=== PATIENT | male | born 1985 | race Caucasian/White ===

== ENCOUNTER → 2016-11-24 | Outpatient (CLI) | payer MEDICARE, OTHER ==
--- NOTE | 2016-11-24 21:20 | CONS ---
DATE: 11/24/2016 CONSULTATION/NEW PATIENT EVALUATION HISTORY OF PRESENT ILLNESS/SLEEP-WAKE EVALUATION: A 31-year-old gentleman who has been evaluated in the sleep center for obstructive sleep apnea/hypopnea syndrome. Patient had been diagnosed with obstructive sleep apnea in a different institution in 2012, was started on treatment with CPAP and he continued to use his equipment every night for the whole night. He lost about 100 pounds for the last year and presently has some difficulties with the usage of his CPAP equipment. He wakes up tired, falling asleep during the day, has problems with memory, concentration. [place] Sleepiness Scale significantly increased to 10. SLEEP SCHEDULE: His sleep schedule is usually from midnight until around 9:00 a.m. FALLING ASLEEP: Sometimes he has problem with falling asleep, has TV set in bedroom. DURING SLEEP: Presently he usually sleeps through the night, but sometimes may wake up. No history of hypnagogic hallucinations, but according to patient, positive history of muscle weakness as a reaction to emotions. DURING THE DAY/WAKE STATE: He has been told about possibility of narcolepsy in the past, but after starting on treatment with CPAP, his alertness improved. PAST MEDICAL HISTORY: Positive for asthma, arthritis, diabetes mellitus, stroke in 2009 with the right side weakness and patient continued to have residual weakness on the right side; sinus problems, multiple sclerosis with brain and spine lesions, migraines, bipolar disorder and depression, vitamin D deficiency, history of restless legs in the past. PAST SURGICAL HISTORY: Pilonidal cyst removed in 2000. MEDICATIONS: Patient did not take list of his medications, does not remember all names, promised to bring the list. SOCIAL HISTORY: Positive for smoking for about 22 years 1/2 pack a day. Patient continues smoking. Alcohol consumption none. REVIEW OF SYSTEMS: Tiredness and sleepiness during the day, weakness in the body, especially on the right side. FAMILY HISTORY: Hypertension, angina, heart problems, hyperlipidemia, epilepsy, fibromyalgia, lung problems, pneumonia, headaches, cancer, insomnia, acid reflux, also with liver problems, anemia, mental illness. PHYSICAL EXAMINATION: GENERAL: A 31-year-old gentleman without distress. VITAL SIGNS: BP 120/74, HR 76, RR 16. Height 5 feet 4 inches, weight 338. BMI 58. Neck 22 inches in circumference. Temperature 97.4. Oxygen saturation at room air 97%. HEENT: MELANIE CRUZ. Evaluation of oropharynx showed tongue protrudes midline. Extremely low position of soft palate. Some restriction of nasal breathing. NECK: Supple. No JVD. Thyroid is not palpable. LUNGS: Clear to percussion and to auscultation. Good air exchange. No wheezing or rhonchi. HEART: S1, S2 regular. No murmurs, gallops or rubs. ABDOMEN: Soft and nontender. Bowel sounds are present. No organomegaly appreciated. EXTREMITIES: Dryness of the skin. Some weakness on the right side. Patient has difficulties to walk, walking with a cane. 1+ ankle edema. [employer]: Awake, alert, and oriented x3. Cranial nerves 2 to 7 intact. There is no fasciculation or atrophy noted. No focal deficits observed. IMPRESSION: 1. Obstructive sleep apnea/hypopnea syndrome diagnosed in a different institution. Patient continued to use continuous positive airway pressure equipment, lost about 100 pounds of weight, developed some difficulties with using continuous positive airway pressure equipment at the present time, but benefitting from treatment. 2. Obesity, body mass index of 58. 3. Asthma. 4. Arthritis. 5. Diabetes mellitus. 6. History of stroke in 2010 with right side weakness and some residual deficit. 7. Sinus problems. 8. History of multiple sclerosis with brain lesion and spine lesion. 9. Migraines. 10. 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 11. Bipolar. 12. Depression. 13. Status post pilonidal cyst removed in 2000. 14. Vitamin D deficiency. 15. Dry skin. PLAN: 1. Repeat CPAP titration for re-evaluation of effective pressure at the present time after patient lost 100 pounds of weight. 2. Sleep hygiene with regular time in bed for at least 8 hours. 3. No driving if feeling any sleepiness. 4. Continue losing weight. 5. Will get results and review results of previous sleep studies. Thank you very much for referring this patient for consultation. Sincerely, Paul Venegas MD, PhD, FAASM. Diplomat of [place] [employer], Sleep Medicine Board by [place] [employer] [place] [employer] [facility] [place]
== END | disposition home or self-care (01) ==
CPT/HCPCS: 99211

== ENCOUNTER 2018-09-19 03:04 | Observation (INO) | payer MEDICARE, OTHER ==
--- NOTE | 2018-09-19 03:24 | ED ---
Back Pain HPI - General Chief Complaint: Back Pain/Injury Stated Complaint: Back pain Time Seen by Provider: 09/19/18 03:22 Source: patient, RN notes reviewed, old records reviewed Limitations: physical limitation - History of Present Illness Initial Comments: This is a 33-year-old male the ER for evaluation patient resents today for evaluation regarding back pain severe, weakness severe. Patient is MS with severe symptoms, severe weakness severe pain. This is typical of patient's MS exacerbation otherwise denies fever or trauma MD Complaint: back pain -: days(s) Similar Symptoms Previously: Yes Place: home Radiation: abdomen Severity: moderate Severity scale (1-10): 4 Quality: aching Consistency: constant Improves With: none, medication Worsens With: movement Associated Symptoms: denies other symptoms - Related Data Home Medications Medication Instructions Recorded Confirmed Diazepam [Valium] 5 mg PO BID 12/24/14 09/19/18 Fenofibrate [Lofibra] 160 mg PO DAILY 12/24/14 09/19/18 Furosemide [Lasix] 20 mg PO DAILY 12/24/14 09/19/18 Ibuprofen [Motrin] 800 mg PO TID PRN 12/24/14 09/19/18 Meclizine [Antivert] 25 mg PO TID PRN 12/24/14 09/19/18 Montelukast [Singulair] 10 mg PO HS 12/24/14 09/19/18 Omeprazole [PriLOSEC] 20 mg PO AC-BID 12/24/14 09/19/18 Pregabalin [Lyrica] 300 mg PO BID 12/24/14 09/19/18 Simvastatin [Zocor] 20 mg PO HS 12/24/14 09/19/18 Travoprost [Travatan Z 0.004%] 1 drop BOTH EYES HS 12/24/14 09/19/18 tiZANidine [Zanaflex] 4 mg PO TID 12/24/14 09/19/18 traMADol HCl [Ultram] 50 mg PO QID PRN 12/24/14 09/19/18 Ampyra 10mg 10 mg PO Q12H 10/04/17 09/19/18 Cholecalciferol [Vitamin D3] 2,000 unit PO DAILY 10/04/17 09/19/18 Insulin Aspart [NovoLOG 30 - 50 unit SQ AC-TID 10/04/17 09/19/18 (formulary)] Insulin Detemir [Levemir] 35 unit SQ HS 10/04/17 09/19/18 Potassium Chloride [Klor-Con 20] 20 meq PO DAILY 10/04/17 09/19/18 Teriflunomide [Aubagio] 14 mg PO DAILY 10/04/17 09/19/18 metFORMIN HCL 1,000 mg PO BID 10/04/17 09/19/18 Butalb/Asprin/Caff 50-325-40Mg 1 cap PO Q8HR 09/19/18 09/19/18 [Fiorinal 50-325-40 MG] Insulin Detemir [Levemir] 30 units SQ DAILY 09/19/18 09/19/18 Teriflunomide [Aubagio] 14 mg PO DAILY 09/19/18 09/19/18 Allergies Allergy/AdvReac Type Severity Reaction Status Date / Time amphetamine [From Adderall] Allergy Unknown Verified 09/19/18 10:20 dextroamphetamine Allergy Unknown Verified 09/19/18 10:20 [From Adderall] peanut [Peanut Butter] Allergy Anaphylaxis Verified 09/19/18 10:20 codiene Allergy Nausea & Uncoded 09/19/18 03:15 Vomiting Review of Systems ROS Statement: Those systems with pertinent positive or pertinent negative responses have been documented in the HPI. ROS Other: All systems not noted in ROS Statement are negative. Past Medical History Past Medical History: CVA/TIA, Diabetes Mellitus, Eye Disorder, GERD/Reflux, Hypertension, Memory Impairment, Seizure Disorder, Sleep Apnea/CPAP/BIPAP Additional Past Medical History / Comment(s): 12/24/14 Pt states he was scheduled for an outpt lumbar puncture for further diagnosing of possible MS or Lupus. Pt started approximately 2 1/2 months ago with feeling like the entire R side of his body was on fire. This went away and then he started with headaches, nausea and disorientation. Pt states he went to [facility] ER and they worked him up and found a brain mass and brain lesions. He then saw neurologist and was worked up for MS . Other HX: Pt states he had CVA in June 2010 which left him with L sided weakness both arm and leg and sometimes drooling out L side of mouth but no difficulty swallowing. Bilateral lower leg and feet neuropathy, incontinent of urine and stools for the last month. Bilateral eyes glaucoma, respiratory failure from sleep apnea 2013. Sleep apnea with CPAP use. Pt had allergic reaction to adderil as a child and pt had some liver involvement at that time however pt states liver tests are normal now. Infections in groin-has never been told this was MRSA or VRE.seizure-last seizure year and half ago, migraines. OPTIC NEURITIS. History of Any Multi-Drug Resistant Organisms: None Reported Additional Past Surgical History / Comment(s): Pilonidial cyst removal, lumbar ouncature, colonoscopy. Past Anesthesia/Blood Transfusion Reactions: No Reported Reaction Additional Past Anesthesia/Blood Transfusion Reaction / Comment(s): Pt has never had a blood transfusion. Past Psychological History: Bipolar, Depression Smoking Status: Current every day smoker Past Alcohol Use History: None Reported Past Drug Use History: Marijuana - Past Family History Father Family Medical History: No Reported History, Cancer, Myocardial Infarction ([place]) Additional Family Medical History / Comment(s): Father was an alcoholic and "drank himself to ." Mother Family Medical History: Blood Disorder, CVA/TIA, Diabetes Mellitus, Deep Vein Thrombosis (DVT), Myocardial Infarction ([place]), Vascular Disorder Additional Family Medical History / Comment(s): Stents in legs. She is currently in hospice. Some kind of blood disorder. General Exam Limitations: physical limitation General appearance: alert, in no apparent distress Head exam: Present: atraumatic, normocephalic, normal inspection Eye exam: Present: normal appearance, PERRL, EOMI. Absent: scleral icterus, conjunctival injection, periorbital swelling ENT exam: Present: normal exam, mucous membranes moist Neck exam: Present: normal inspection. Absent: tenderness, meningismus, lymphadenopathy Respiratory exam: Present: normal lung sounds bilaterally. Absent: respiratory distress, wheezes, rales, rhonchi, stridor Cardiovascular Exam: Present: regular rate, normal rhythm, normal heart sounds. Absent: systolic murmur, diastolic murmur, rubs, gallop, clicks GI/Abdominal exam: Present: soft, normal bowel sounds. Absent: distended, tenderness, guarding, rebound, rigid Extremities exam: Present: normal inspection, full ROM, normal capillary refill. Absent: tenderness, pedal edema, joint swelling, calf tenderness Back exam: Present: normal inspection Neurological exam: Present: alert, oriented X3, CN II-XII intact Psychiatric exam: Present: normal affect, normal mood Skin exam: Present: warm, dry, intact, normal color. Absent: rash Course Vital Signs 09/19/18 09/19/18 09/19/18 03:11 03:50 04:25 Temperature 99.1 F 98.5 F Pulse Rate 98 91 88 Pulse Rate [ Pulse Oximetery ] Respiratory 20 18 17 Rate Blood Pressure 135/71 135/78 132/72 O2 Sat by Pulse 94 L 96 96 Oximetry 09/19/18 04:30 Temperature Pulse Rate Pulse Rate [ 91 Pulse Oximetery ] Respiratory 18 Rate Blood Pressure O2 Sat by Pulse Oximetry - Reevaluation(s) Reevaluation #1: Medical record is reviewed Pain is currently controlled Medical Decision Making - Medical Decision Making 33 male the ER for evaluation of persistent back pain and weakness. Inability to ambulate which is chronic, patient will be admitted for MS exacerbation IV steroids and neurological evaluation and treatment - Lab Data Result diagrams: 09/19/18 03:47 09/19/18 03:47 Lab Results 09/19/18 Range/Units 03:25 POC Glucose (mg/dL) 175 H (75-99) mg/dL POC Glu Metal Grader ID Mariela Leiva Disposition Clinical Impression: Exacerbation of multiple sclerosis, Lower extremity weakness, Mechanical back pain Disposition: ADMITTED IP TO THIS HOSP Condition: Good Is patient prescribed a controlled substance at d/c from ED?: No
[2018-09-19] MEDS ORDERED: SODIUM CHLORIDE 0.9% 500 ML 500 ML IV STA (03:29)
[2018-09-19] MEDS ORDERED: SODIUM CHLORIDE 0.9% 1,000 ML IV STA (03:29)
[2018-09-19] MEDS ORDERED: HYDROmorphone 1 MG/ML 1 ML SYRINGE IVP STA (03:29)
[2018-09-19] MEDS ORDERED: methylPREDNISolone SOD SUCCI 250 MG in SODIUM CHLORIDE 0.9% 100 ML IVPB STA (03:29)
[2018-09-19] MEDS ORDERED: SODIUM CHLORIDE 0.9% 1,000 ML IV ONE (03:31)
[2018-09-19 03:45] LABS: Glucose,Whole Blood 175 mg/dL (75-99)
[2018-09-19 04:06] LABS: Basophils # (A) 0.1 k/uL (0-0.2); Basophils % (A) 1 %; Eosinophils # (A) 0.2 k/uL (0-0.7); Eosinophils % (A) 1 %; HCT 40.6 % (39.0-53.0); HGB 13.6 gm/dL (13.0-17.5); Lymphocytes # (A) 1.8 k/uL (1.0-4.8); Lymphocytes % (A) 10 %; MCHC 33.5 g/dL (31.0-37.0); MCV 89.7 fL (80.0-100.0); Mean Platelet Volume 8.4; Monocytes # (A) 1.1 k/uL (0-1.0); Monocytes % (A) 6 %; Neutrophils # (A) 13.9 k/uL (1.3-7.7); Neutrophils % (A) 81 %; Platelet Count 232 k/uL (150-450); RBC 4.52 m/uL (4.30-5.90); RDW 14.3 % (11.5-15.5); WBC 17.2 k/uL (3.8-10.6)
[2018-09-19 04:23] LABS: ALT 39 U/L (21-72); AST 25 U/L (17-59); Alkaline Phosphatase 31 U/L (38-126); Anion Gap 9 mmol/L; Blood Urea Nitrogen 14 mg/dL (9-20); Calcium 9.4 mg/dL (8.4-10.2); Carbon Dioxide 24 mmol/L (22-30); Chloride 102 mmol/L (98-107); Glucose 168 mg/dL (74-99); Potassium 4.2 mmol/L (3.5-5.1); Sodium 135 mmol/L (137-145); Total Bilirubin 0.9 mg/dL (0.2-1.3); Total Protein 7.3 g/dL (6.3-8.2)
[2018-09-19 05:14] VITALS: RESP 18
[2018-09-19 05:56] VITALS: BMI 59.9
[2018-09-19] MEDS: HYDROmorphone 1 MG/ML 1 ML SYRINGE IVP PRN ×3 (06:54→15:56)
[2018-09-19 07:17] LABS: Glucose,Whole Blood 256 mg/dL (75-99)
[2018-09-19] MEDS: INSULIN ASPART 100 UNIT/ML 1 ML 10 ML VIAL SQ SCH ×6 (07:43→22:19)
[2018-09-19] MEDS ORDERED: traMADol 50 MG TAB PO PRN (12:02)
[2018-09-19 12:06] LABS: Glucose,Whole Blood 385 mg/dL (75-99)
--- NOTE | 2018-09-19 12:41 | P.HPIM ---
History of Present Illness Patient is a 33-year-old male with a known history of multiple sclerosis diagnosed by lumbar puncture as per the patient came in with complaints of increasing weakness patient states he has chronic weakness in the right side and patient is unable to stand up. Patient was bit dizzy as well which is lightheadedness denied any visual problems denied any significant obvious focal weakness. Patient appears to have some generalized weakness strength in right upper extremity and lower extremities 4+/5 and left side is 5/5. Patient is bit unstable when he stands up mostly appears to be secondary to his morbid obesity. We will obtain PT and OT consultation patient's reflexes in the biceps and knee are 2 /4 which is pretty much normal. Patient was started on high-dose steroids neurology was consulted. My suspicion is low that patient has MS exacerbation but I will let neurology evaluated and further management depending on that'll assessment patient is on high-dose steroids and his sugars are highly elevated because of that patient is on very high doses of pre-meal insulin and Lantus which will be continued along with sliding scale. She denied any fever chills visual problems. Her pain behind the eye Review of Systems REVIEW OF SYSTEMS: CONSTITUTIONAL: No fever, no malaise, no fatigue. HEENT: No recent visual problems or hearing problems. Denied any sore throat. CARDIOVASCULAR: No chest pain, orthopnea, PND, no palpitations, no syncope. PULMONARY: No shortness of breath, no cough, no hemoptysis. GASTROINTESTINAL: No diarrhea, no nausea, no vomiting, no abdominal pain. Normoactive bowel sounds. NEUROLOGICAL: As mentioned in HPI HEMATOLOGICAL: Denies any bleeding or petechiae. GENITOURINARY: Denies any burning micturition, frequency, or urgency. MUSCULOSKELETAL/RHEUMATOLOGICAL: Denies any joint pain, swelling, or any muscle pain. ENDOCRINE: Denies any polyuria or polydipsia. The rest of the 14-point review of systems is negative. Past Medical History Past Medical History: CVA/TIA, Diabetes Mellitus, Eye Disorder, GERD/Reflux, Hypertension, Memory Impairment, Neurologic Disorder, Respiratory Disorder, Seizure Disorder, Sleep Apnea/CPAP/BIPAP Additional Past Medical History / Comment(s): MS, Other HX: Pt states he had CVA in June 2010 which left him with right sided weakness both arm and leg, Bilateral lower leg and feet neuropathy, incontinent of urine and stools for the last month. Bilateral eyes glaucoma, respiratory failure from sleep apnea 2012. Sleep apnea with CPAP use nad oxygen at 4L at night. Pt had allergic reaction to adderil as a child and pt had some liver involvement at that time however pt states liver tests are normal now. Infections in groin-has never been told this was MRSA or VRE.seizure-last seizure year and half ago, migraines. OPTIC NEURITIS, chronic diarrhea, incontinence History of Any Multi-Drug Resistant Organisms: None Reported Additional Past Surgical History / Comment(s): Pilonidial cyst removal, lumbar ouncature, colonoscopy. Past Anesthesia/Blood Transfusion Reactions: No Reported Reaction Additional Past Anesthesia/Blood Transfusion Reaction / Comment(s): Pt has never had a blood transfusion. Smoking Status: Current every day smoker - Past Family History Father Family Medical History: No Reported History, Cancer, Myocardial Infarction ([place]) Additional Family Medical History / Comment(s): Father was an alcoholic and "drank himself to ." Mother Family Medical History: Blood Disorder, CVA/TIA, Diabetes Mellitus, Deep Vein Thrombosis (DVT), Myocardial Infarction ([place]), Vascular Disorder Additional Family Medical History / Comment(s): Stents in legs, anemia Medications and Allergies Home Medications Medication Instructions Recorded Confirmed Type Diazepam [Valium] 5 mg PO BID 12/24/14 09/19/18 History Fenofibrate [Lofibra] 160 mg PO DAILY 12/24/14 09/19/18 History Furosemide [Lasix] 20 mg PO DAILY 12/24/14 09/19/18 History Ibuprofen [Motrin] 800 mg PO TID PRN 12/24/14 09/19/18 History Meclizine [Antivert] 25 mg PO TID PRN 12/24/14 09/19/18 History Montelukast [Singulair] 10 mg PO HS 12/24/14 09/19/18 History Omeprazole [PriLOSEC] 20 mg PO AC-BID 12/24/14 09/19/18 History Pregabalin [Lyrica] 300 mg PO BID 12/24/14 09/19/18 History Simvastatin [Zocor] 20 mg PO HS 12/24/14 09/19/18 History Travoprost [Travatan Z 0.004%] 1 drop BOTH EYES HS 12/24/14 09/19/18 History tiZANidine [Zanaflex] 4 mg PO TID 12/24/14 09/19/18 History traMADol HCl [Ultram] 50 mg PO QID PRN 12/24/14 09/19/18 History Ampyra 10mg 10 mg PO Q12H 10/04/17 09/19/18 History Cholecalciferol [Vitamin D3] 2,000 unit PO DAILY 10/04/17 09/19/18 History Insulin Aspart [NovoLOG 30 - 50 unit SQ AC-TID 10/04/17 09/19/18 History (formulary)] Insulin Detemir [Levemir] 35 unit SQ HS 10/04/17 09/19/18 History Potassium Chloride [Klor-Con 20] 20 meq PO DAILY 10/04/17 09/19/18 History Teriflunomide [Aubagio] 14 mg PO DAILY 10/04/17 09/19/18 History metFORMIN HCL 1,000 mg PO BID 10/04/17 09/19/18 History Butalb/Asprin/Caff 50-325-40Mg 1 cap PO Q8HR 09/19/18 09/19/18 History [Fiorinal 50-325-40 MG] Insulin Detemir [Levemir] 30 units SQ DAILY 09/19/18 09/19/18 History Teriflunomide [Aubagio] 14 mg PO DAILY 09/19/18 09/19/18 History Allergies Allergy/AdvReac Type Severity Reaction Status Date / Time amphetamine [From Adderall] Allergy Unknown Verified 09/19/18 10:20 dextroamphetamine Allergy Unknown Verified 09/19/18 10:20 [From Adderall] peanut [Peanut Butter] Allergy Anaphylaxis Verified 09/19/18 10:20 codiene Allergy Nausea & Uncoded 09/19/18 03:15 Vomiting Physical Exam Vitals: Vital Signs Temp Pulse Pulse Resp BP BP Pulse Ox 09/19/18 08:00 85 18 09/19/18 07:25 98.2 F 85 18 114/73 94 L 09/19/18 05:00 98.4 F 91 18 125/74 92 L 09/19/18 04:30 91 18 09/19/18 04:25 98.5 F 88 17 132/72 96 09/19/18 03:50 91 18 135/78 96 09/19/18 03:11 99.1 F 98 20 135/71 94 L Intake and Output 09/18/18 09/19/18 09/19/18 22:59 06:59 14:59 Intake Total 390 240 Balance 390 240 Intake: Intake, IV Titration 150 Amount Sodium Chloride 0.9% 1, 150 000 ml @ 100 mls/hr IV . Q10H ONE Rx#:[id number] Oral 240 240 Other: Voiding Method Diaper Incontinent Weight 163.293 kg PHYSICAL EXAMINATION: GENERAL: The patient is alert and oriented x3, not in any acute distress. Well developed, well nourished. HEENT: Pupils are round and equally reacting to light. EOMI. No scleral icterus. No conjunctival pallor. Normocephalic, atraumatic. No pharyngeal erythema. No thyromegaly. CARDIOVASCULAR: S1 and S2 present. No murmurs, rubs, or gallops. PULMONARY: Chest is clear to auscultation, no wheezing or crackles. ABDOMEN: Soft, nontender, nondistended, normoactive bowel sounds. No palpable organomegaly. MUSCULOSKELETAL: No joint swelling or deformity. EXTREMITIES: No cyanosis, clubbing, or pedal edema. NEUROLOGICAL: As discussed in HPI itself SKIN: No rashes. Results CBC & Chem 7: 09/19/18 03:47 09/19/18 03:47 Labs: Abnormal Lab Results - Last 24 Hours (Table) 09/19/18 09/19/18 09/19/18 Range/Units 03:25 03:47 03:47 WBC 17.2 H (3.8-10.6) k/uL Neutrophils # 13.9 H (1.3-7.7) k/uL Monocytes # 1.1 H (0-1.0) k/uL Sodium 135 L (137-145) mmol/L Glucose 168 H (74-99) mg/dL POC Glucose (mg/dL) 175 H (75-99) mg/dL Alkaline Phosphatase 31 L (38-126) U/L 09/19/18 09/19/18 Range/Units 07:15 12:04 WBC (3.8-10.6) k/uL Neutrophils # (1.3-7.7) k/uL Monocytes # (0-1.0) k/uL Sodium (137-145) mmol/L Glucose (74-99) mg/dL POC Glucose (mg/dL) 256 H 385 H (75-99) mg/dL Alkaline Phosphatase (38-126) U/L Thrombosis Risk Factor Assmnt - Choose All That Apply Any of the Below Risk Factors Present?: Yes Each Factor Represents 1 point: Medical pt on bed rest, Obesity (BMI >25), Swollen legs (current) Other Risk Factors: Yes Each Risk Factor Represents 2 Points: Patient confined to bed Other congenital or acquired thrombophilia - If yes, enter type in comment: No Thrombosis Risk Factor Assessment Total Risk Factor Score: 5 Thrombosis Risk Factor Assessment Level: High Risk Assessment and Plan Plan: -Weakness and dizziness: Neurology will evaluate the patient my suspicion is low that patient has MS exacerbation but we will let led to neurology assess and treat if he has any multiple sclerosis exacerbation patient is presently on high-dose steroids which will continue until we evaluate the patient. -History of CVA TIA in the past -Type 2 diabetes mellitus uncontrolled elevated blood sugars secondary to systemic steroids further management as mentioned in the interval history itself -Seizure disorder -Morbid obesity sleep apnea -Gastroesophageal reflux disease -Generalized weakness, PT and OT will evaluate the patient -Nicotine abuse and marijuana use: Counseling was provided For above-mentioned chronic medical problems patient will be resumed and continued on appropriate home medications.
[2018-09-19] MEDS ORDERED: AUBAGIO 14 MG PO SCH (13:45)
[2018-09-19] MEDS ORDERED: NON-FORMULARY DRUG (Teriflunomide [Aubagio] 14 MG) PO SCH (13:45)
[2018-09-19 16:46] LABS: Glucose,Whole Blood 331 mg/dL (75-99)
[2018-09-19] MEDS ORDERED: metFORMIN 500 MG TAB PO SCH (17:30)
[2018-09-19 20:51] LABS: Glucose,Whole Blood 341 mg/dL (75-99)
[2018-09-19 20:55] VITALS: BP 161/75; PULSE 74; TEMP 97.6
[2018-09-19] MEDS ORDERED: LATANOPROST 0.005% OPHTH DROPS 2.5 ML BTL BOTH EYES SCH (21:00)
[2018-09-19] MEDS ORDERED: PREGABALIN 100 MG CAP PO SCH (21:00)
[2018-09-19] MEDS ORDERED: INSULIN DETEMIR 100 UNIT/ML 10 ML VIAL SQ SCH (21:00)
[2018-09-19] MEDS ORDERED: ATORVASTATIN 10 MG TAB PO SCH (21:00)
[2018-09-20] MEDS ORDERED: INSULIN DETEMIR 100 UNIT/ML 10 ML VIAL SQ SCH (09:00)
[2018-09-20] MEDS ORDERED: FENOFIBRATE 160 MG TAB PO SCH (09:00)
[2018-09-20] MEDS ORDERED: FUROSEMIDE 20 MG TAB PO SCH (09:00)
--- NOTE | 2018-09-20 15:26 | P.DS ---
Providers Date of admission: 09/19/18 03:32 Attending physician: Jos Maradiaga Consults: 09/19/18 03:31 Consult Physician Routine Consulting Provider: Maynor Weinberg Consult Reason/Comments: MS Do you want consulting provider notified?: Yes Primary care physician: Bernadette Khai [facility] Course: Patient was subsequently evaluated by neurology they cleared for discharge patient will follow up with neurology as an outpatient. For rest of the details please refer to my HPI Patient Condition at Discharge: Good Plan - Discharge Summary Discharge Rx Participant: No New Discharge Prescriptions: No Action Travoprost [Travatan Z 0.004%] 1 drop BOTH EYES HS Furosemide [Lasix] 20 mg PO DAILY Simvastatin [Zocor] 20 mg PO HS Omeprazole [PriLOSEC] 20 mg PO AC-BID tiZANidine [Zanaflex] 4 mg PO TID Ibuprofen [Motrin] 800 mg PO TID PRN PRN Reason: Pain traMADol HCl [Ultram] 50 mg PO QID PRN PRN Reason: Pain Pregabalin [Lyrica] 300 mg PO BID Meclizine [Antivert] 25 mg PO TID PRN PRN Reason: Nausea Montelukast [Singulair] 10 mg PO HS Fenofibrate [Lofibra] 160 mg PO DAILY Diazepam [Valium] 5 mg PO BID Insulin Detemir [Levemir] 35 unit SQ HS metFORMIN HCL 1,000 mg PO BID Insulin Aspart [NovoLOG (formulary)] 30 - 50 unit SQ AC-TID Potassium Chloride [Klor-Con 20] 20 meq PO DAILY Ampyra 10mg 10 mg PO Q12H Cholecalciferol [Vitamin D3] 2,000 unit PO DAILY Teriflunomide [Aubagio] 14 mg PO DAILY Teriflunomide [Aubagio] 14 mg PO DAILY Butalb/Asprin/Caff 50-325-40Mg [Fiorinal 50-325-40 MG] 1 cap PO Q8HR Insulin Detemir [Levemir] 30 units SQ DAILY Discharge Medication List Diazepam [Valium] 5 mg PO BID 12/24/14 [History] Fenofibrate [Lofibra] 160 mg PO DAILY 12/24/14 [History] Furosemide [Lasix] 20 mg PO DAILY 12/24/14 [History] Ibuprofen [Motrin] 800 mg PO TID PRN 12/24/14 [History] Meclizine [Antivert] 25 mg PO TID PRN 12/24/14 [History] Montelukast [Singulair] 10 mg PO HS 12/24/14 [History] Omeprazole [PriLOSEC] 20 mg PO AC-BID 12/24/14 [History] Pregabalin [Lyrica] 300 mg PO BID 12/24/14 [History] Simvastatin [Zocor] 20 mg PO HS 12/24/14 [History] Travoprost [Travatan Z 0.004%] 1 drop BOTH EYES HS 12/24/14 [History] tiZANidine [Zanaflex] 4 mg PO TID 12/24/14 [History] traMADol HCl [Ultram] 50 mg PO QID PRN 12/24/14 [History] Ampyra 10mg 10 mg PO Q12H 10/04/17 [History] Cholecalciferol [Vitamin D3] 2,000 unit PO DAILY 10/04/17 [History] Insulin Aspart [NovoLOG (formulary)] 30 - 50 unit SQ AC-TID 10/04/17 [History] Insulin Detemir [Levemir] 35 unit SQ HS 10/04/17 [History] Potassium Chloride [Klor-Con 20] 20 meq PO DAILY 10/04/17 [History] Teriflunomide [Aubagio] 14 mg PO DAILY 10/04/17 [History] metFORMIN HCL 1,000 mg PO BID 10/04/17 [History] Butalb/Asprin/Caff 50-325-40Mg [Fiorinal 50-325-40 MG] 1 cap PO Q8HR 09/19/18 [ History] Insulin Detemir [Levemir] 30 units SQ DAILY 09/19/18 [History] Teriflunomide [Aubagio] 14 mg PO DAILY 09/19/18 [History] Follow up Appointment(s)/Referral(s): Bernadette Ridley MD [Primary Care Provider] - 1-2 days Discharge Disposition: HOME SELF-CARE
--- NOTE | 2018-09-24 08:33 | CONS ---
CONSULTATION DATE OF CONSULTATION: 09/19/2018 CHIEF COMPLAINT: Multiple sclerosis exacerbation. HISTORY OF PRESENT ILLNESS: Mr. Poole is a 33-year-old, male, who is being evaluated today on 09/19/2018 by the Neurology Service per the request of Dr. Maradiaga for a multiple sclerosis exacerbation. The patient does have history of multiple sclerosis and is treating daily at home with oral Aubagio. He presented to [facility] with complaints of lower extremity weakness which has caused him to fall and had difficulty getting back up. He denied any head injuries with the fall. His CBC showed leukocytosis at 17.2 and his comprehensive metabolic profile showed minimal hyponatremia at 1:35 am and hyperglycemia at 168. The patient was admitted to the observation unit and started on IV hydration. At the time of my evaluation, he had received his third dose of IV Solu-Medrol. He states that after the second dose, he has been able to ambulate and reports no weakness in the legs. He denies any other neurological complaints. PAST MEDICAL HISTORY: Multiple sclerosis, morbid obesity, diabetes, transient ischemic attack, gastroesophageal reflux disease, hypertension, obstructive sleep apnea. SOCIAL HISTORY: The patient is a current every day smoker. He denies any alcohol or drug use. FAMILY HISTORY: Positive for strokes, heart disease, diabetes. HOME MEDICATIONS: Reviewed in the chart. ALLERGIES: ADDERALL, CODEINE, PEANUT BUTTER/PEANUTS. REVIEW OF SYSTEM: As mentioned above and otherwise negative. PHYSICAL EXAM: Vital signs show a temperature of 97.7, pulse 70, respiration 18, blood pressure 138/64. GENERAL APPEARANCE: The patient is a morbidly obese male, who appears to be in no acute distress. HEENT: Normocephalic, atraumatic, no facial asymmetry is seen. NECK: Supple with no masses felt. CARDIOVASCULAR: Regular rate and rhythm. ABDOMEN: Nontender, nondistended. Extremities showed no edema or clubbing. NEUROLOGICAL EXAM: The patient is awake and oriented x3. Speech and language are normal. Strength is full in all 4 extremities. Sensory exam showed diminished light touch sensation in bilateral distal lower extremities. No pronator drift is seen. Rqurcc-omez-[id number] testing showed no dysmetria. No facial asymmetry is seen on cranial nerve testing. No tremors or seizure-like activity is seen. IMPRESSION: 1. Acute multiple sclerosis exacerbation. 2. Lower extremity weakness, improved. 3. Morbid obesity. 4. Distal lower extremities, sensory deficit. RECOMMENDATION: The patient has been having some progressive weakness which led to his fall mainly involving his lower extremities. His symptoms are resolved with the IV Solu-Medrol therapy. He has been ambulating with no difficulties. Otherwise, his neurological examination is normal, except for mild sensory deficit in bilateral distal lower extremities, which could be secondary to early peripheral polyneuropathy given his comorbidities. He will need further outpatient neurophysiological workup. Otherwise, he is cleared for discharge from a neurology standpoint, and he could continue his IV Solu-Medrol as an outpatient. I will continue to follow with you as needed. Thank you for allowing me to participate in the care of your patient. If you have any questions, please feel free to contact me. SHANIQUE / ALEXANDER: [id number] /
== END 2018-09-19 22:45 | disposition home or self-care (01) ==
LOC: EC 03:04 → 1SOBS 03:32
PROVIDERS: ADMIT Hospitalist; ATTEND Hospitalist
DX: G35 Multiple sclerosis (principal); E11.65 Type 2 diabetes mellitus with hyperglycemia; E66.01 Morbid (severe) obesity due to excess calories; Z68.43 Body mass index [BMI] 50.0-59.9, adult; E11.40 Type 2 diabetes mellitus with diabetic neuropathy, unspecified; F17.200 Nicotine dependence, unspecified, uncomplicated; G40.909 Epilepsy, unspecified, not intractable, without status epilepticus; K52.9 Noninfective gastroenteritis and colitis, unspecified; D72.829 Elevated white blood cell count, unspecified; I69.351 Hemiplegia and hemiparesis following cerebral infarction affecting right dominant side; G47.33 Obstructive sleep apnea (adult) (pediatric); H40.9 Unspecified glaucoma; I10 Essential (primary) hypertension; K21.9 Gastro-esophageal reflux disease without esophagitis; Z79.4 Long term (current) use of insulin; Z81.1 Family history of alcohol abuse and dependence; Z82.3 Family history of stroke; Z82.49 Family history of ischemic heart disease and other diseases of the circulatory system; Z83.3 Family history of diabetes mellitus; Z79.899 Other long term (current) drug therapy; Z88.8 Allergy status to other drugs, medicaments and biological substances; Z88.5 Allergy status to narcotic agent; Z91.010 Allergy to peanuts
CPT/HCPCS: 96365; 96366; 96375; 96376; 99285; 80053; 85025; G0378; J2930; J1170

== ENCOUNTER 2018-10-23 04:12 | Inpatient (IN) | payer MEDICARE, OTHER ==
[2018-10-23] MEDS ORDERED: ACETAMINOPHEN TAB 325 MG TAB PO STA (04:55)
[2018-10-23] MEDS ORDERED: IBUPROFEN 600 MG TAB PO STA (04:55)
--- NOTE | 2018-10-23 05:01 | ED ---
General Adult HPI - General Chief complaint: Recheck/Abnormal Lab/Rx Stated complaint: weakness Time Seen by Provider: 10/23/18 04:24 Source: patient, EMS Mode of arrival: EMS Limitations: no limitations - History of Present Illness Initial comments: This patient is a 33-year-old man who presents here by ambulance as a transfer from [facility]. The patient states that he had gone there to be evaluated for generalized weakness, fatigue, and body aches. Patient states the symptoms had started 2 days ago. Today he had gone to use the bathroom at his home and then was feeling so weak he could not get up from the commode. Patient states also that he had 2 loose bowel movements. He denied seeing any blood. Patient was concerned that he was having an MS exacerbation and they transferred him here to be seen by his neurologist Dr. Weinberg. Here the patient has also noted he is having fever and chills. He also had complained of redness of the bilateral legs. On the review of systems she has had multiple days of a nonproductive cough. Denies any urinary symptoms. Onset/Timin -: days(s) Consistency: constant Improves with: none Worsens with: other (Walking) Associated Symptoms: cough, fever/chills, malaise, rash, weakness Treatments Prior to Arrival: none - Related Data Home Medications Medication Instructions Recorded Confirmed Diazepam [Valium] 5 mg PO BID 12/24/14 10/11/18 Fenofibrate [Lofibra] 160 mg PO DAILY 12/24/14 10/11/18 Furosemide [Lasix] 20 mg PO DAILY 12/24/14 10/11/18 Ibuprofen [Motrin] 800 mg PO TID PRN 12/24/14 10/11/18 Meclizine [Antivert] 25 mg PO TID PRN 12/24/14 10/11/18 Montelukast [Singulair] 10 mg PO HS 12/24/14 10/11/18 Omeprazole [PriLOSEC] 20 mg PO AC-BID 12/24/14 10/11/18 Pregabalin [Lyrica] 300 mg PO BID 12/24/14 10/11/18 Simvastatin [Zocor] 20 mg PO HS 12/24/14 10/11/18 Travoprost [Travatan Z 0.004%] 1 drop BOTH EYES HS 12/24/14 10/11/18 tiZANidine [Zanaflex] 4 mg PO TID 12/24/14 10/11/18 traMADol HCl [Ultram] 50 mg PO Q4HR PRN 12/24/14 10/11/18 Ampyra 10mg 10 mg PO Q12H 10/04/17 10/11/18 Cholecalciferol [Vitamin D3] 2,000 unit PO DAILY 10/04/17 10/11/18 Insulin Aspart [NovoLOG 30 - 50 unit SQ AC-TID 10/04/17 10/11/18 (formulary)] Insulin Detemir [Levemir] 35 unit SQ HS 10/04/17 10/11/18 Potassium Chloride [Klor-Con 20] 20 meq PO DAILY 10/04/17 10/11/18 Teriflunomide [Aubagio] 14 mg PO DAILY 10/04/17 10/11/18 metFORMIN HCL 1,000 mg PO BID 10/04/17 10/11/18 Butalb/Asprin/Caff 50-325-40Mg 1 cap PO Q8HR 09/19/18 10/11/18 [Fiorinal 50-325-40 MG] Teriflunomide [Aubagio] 14 mg PO DAILY 09/19/18 10/11/18 Allergies Allergy/AdvReac Type Severity Reaction Status Date / Time amphetamine [From Adderall] Allergy Unknown Verified 10/11/18 13:24 dextroamphetamine Allergy Unknown Verified 10/11/18 13:24 [From Adderall] codiene Allergy Nausea & Uncoded 10/11/18 13:24 Vomiting Review of Systems ROS Statement: Those systems with pertinent positive or pertinent negative responses have been documented in the HPI. ROS Other: All systems not noted in ROS Statement are negative. Constitutional: Reports: fever, chills, weakness Eyes: Denies: vision change ENT: Reports: throat pain Respiratory: Reports: cough, dyspnea Cardiovascular: Reports: chest pain, edema. Denies: palpitations, syncope Gastrointestinal: Reports: diarrhea. Denies: abdominal pain, nausea, vomiting Genitourinary: Denies: dysuria, hematuria Musculoskeletal: Denies: back pain Skin: Denies: rash Neurological: Denies: headache, weakness, numbness Past Medical History Past Medical History: CVA/TIA, Diabetes Mellitus, Eye Disorder, GERD/Reflux, Hypertension, Memory Impairment, Seizure Disorder, Sleep Apnea/CPAP/BIPAP Additional Past Medical History / Comment(s): 12/24/14 Pt states he was scheduled for an outpt lumbar puncture for further diagnosing of possible MS or Lupus. Pt started approximately 2 1/2 months ago with feeling like the entire R side of his body was on fire. This went away and then he started with headaches, nausea and disorientation. Pt states he went to [facility] ER and they worked him up and found a brain mass and brain lesions. He then saw neurologist and was worked up for MS . Other HX: Pt states he had CVA in June 2010 which left him with L sided weakness both arm and leg and sometimes drooling out L side of mouth but no difficulty swallowing. Bilateral lower leg and feet neuropathy, incontinent of urine and stools for the last month. Bilateral eyes glaucoma, respiratory failure from sleep apnea 2012. Sleep apnea with CPAP use. Pt had allergic reaction to adderil as a child and pt had some liver involvement at that time however pt states liver tests are normal now. Infections in groin-has never been told this was MRSA or VRE.seizure-last seizure year and half ago, migraines. OPTIC NEURITIS. History of Any Multi-Drug Resistant Organisms: None Reported Additional Past Surgical History / Comment(s): Pilonidial cyst removal, lumbar ouncature, colonoscopy. Past Anesthesia/Blood Transfusion Reactions: No Reported Reaction Additional Past Anesthesia/Blood Transfusion Reaction / Comment(s): Pt has never had a blood transfusion. Past Psychological History: Bipolar, Depression Smoking Status: Current every day smoker Past Alcohol Use History: None Reported Past Drug Use History: Marijuana - Past Family History Father Family Medical History: No Reported History, Cancer, Myocardial Infarction ([place]) Additional Family Medical History / Comment(s): Father was an alcoholic and "drank himself to ." Mother Family Medical History: Blood Disorder, CVA/TIA, Diabetes Mellitus, Deep Vein Thrombosis (DVT), Myocardial Infarction ([place]), Vascular Disorder Additional Family Medical History / Comment(s): Stents in legs. She is currently in hospice. Some kind of blood disorder. General Exam Limitations: no limitations General appearance: alert, obese Head exam: Present: atraumatic, normocephalic Eye exam: Present: normal appearance. Absent: scleral icterus, conjunctival injection ENT exam: Present: mucous membranes dry Neck exam: Present: full ROM. Absent: tenderness, meningismus Respiratory exam: Present: normal lung sounds bilaterally. Absent: respiratory distress, wheezes, rales, rhonchi, stridor Cardiovascular Exam: Present: normal rhythm, tachycardia, normal heart sounds. Absent: systolic murmur, diastolic murmur, rubs, gallop GI/Abdominal exam: Present: soft. Absent: tenderness, guarding, rebound, mass Extremities exam: Present: normal capillary refill. Absent: pedal edema, calf tenderness Neurological exam: Present: alert Skin exam: Present: warm, dry, erythema (Bilateral lower extremities) Course Vital Signs 10/23/18 10/23/18 10/23/18 04:21 04:36 06:24 Temperature 101.9 F H 98.8 F Pulse Rate 103 H Respiratory 18 20 Rate Blood Pressure 143/72 O2 Sat by Pulse 97 Oximetry 10/23/18 06:55 Temperature Pulse Rate 95 Respiratory 18 Rate Blood Pressure 122/59 O2 Sat by Pulse 97 Oximetry EKG Findings - EKG Comments: EKG Findings:: Low-voltage QRS complex - EKG Results: EKG: interpreted by ERMD, sinus rhythm (Rate 96 bpm), normal axis, normal ST/T, no acute changes Medical Decision Making - Lab Data Result diagrams: 10/23/18 05:29 10/23/18 04:31 Lab Results 10/23/18 10/23/18 10/23/18 Range/Units 04:31 04:31 05:29 WBC 9.5 (3.8-10.6) k/uL RBC 4.28 L (4.30-5.90) m/uL Hgb 12.5 L (13.0-17.5) gm/dL Hct 39.0 (39.0-53.0) % MCV 91.1 (80.0-100.0) fL MCH 29.1 (25.0-35.0) pg MCHC 32.0 (31.0-37.0) g/dL RDW 15.0 (11.5-15.5) % Plt Count 138 L (150-450) k/uL PT (9.0-12.0) sec INR (<1.2) APTT (22.0-30.0) sec Sodium 136 L (137-145) mmol/L Potassium 4.1 (3.5-5.1) mmol/L Chloride 101 (98-107) mmol/L Carbon Dioxide 26 (22-30) mmol/L Anion Gap 9 mmol/L BUN 25 H (9-20) mg/dL Creatinine 0.93 (0.66-1.25) mg/dL Est GFR (CKD-EPI)AfAm >90 (>60 ml/min/1.73 sqM) Est GFR (CKD-EPI)NonAf >90 (>60 ml/min/1.73 sqM) Glucose 113 H (74-99) mg/dL Plasma Lactic Acid Jose (0.7-2.0) mmol/L Calcium 8.9 (8.4-10.2) mg/dL Total Bilirubin 0.7 (0.2-1.3) mg/dL AST 112 H (17-59) U/L ALT 147 H (21-72) U/L Alkaline Phosphatase 37 L (38-126) U/L Troponin I <0.012 (0.000-0.034) ng/mL Total Protein 6.6 (6.3-8.2) g/dL Albumin 3.4 L (3.5-5.0) g/dL Influenza Type A RNA (Not Detectd) Influenza Type B (PCR) (Not Detectd) Group A Strep Rapid (Negative) 10/23/1818 10/23/18 Range/Units 05:29 05:29 05:29 WBC (3.8-10.6) k/uL RBC (4.30-5.90) m/uL Hgb (13.0-17.5) gm/dL Hct (39.0-53.0) % MCV (80.0-100.0) fL MCH (25.0-35.0) pg MCHC (31.0-37.0) g/dL RDW (11.5-15.5) % Plt Count (150-450) k/uL PT 10.4 (9.0-12.0) sec INR 1.0 (<1.2) APTT 22.8 (22.0-30.0) sec Sodium (137-145) mmol/L Potassium (3.5-5.1) mmol/L Chloride (98-107) mmol/L Carbon Dioxide (22-30) mmol/L Anion Gap mmol/L BUN (9-20) mg/dL Creatinine (0.66-1.25) mg/dL Est GFR (CKD-EPI)AfAm (>60 ml/min/1.73 sqM) Est GFR (CKD-EPI)NonAf (>60 ml/min/1.73 sqM) Glucose (74-99) mg/dL Plasma Lactic Acid Jose 2.4 H* (0.7-2.0) mmol/L Calcium (8.4-10.2) mg/dL Total Bilirubin (0.2-1.3) mg/dL AST (17-59) U/L ALT (21-72) U/L Alkaline Phosphatase (38-126) U/L Troponin I (0.000-0.034) ng/mL Total Protein (6.3-8.2) g/dL Albumin (3.5-5.0) g/dL Influenza Type A RNA Not Detected (Not Detectd) Influenza Type B (PCR) Not Detected (Not Detectd) Group A Strep Rapid (Negative) 10/23/18 Range/Units 05:29 WBC (3.8-10.6) k/uL RBC (4.30-5.90) m/uL Hgb (13.0-17.5) gm/dL Hct (39.0-53.0) % MCV (80.0-100.0) fL MCH (25.0-35.0) pg MCHC (31.0-37.0) g/dL RDW (11.5-15.5) % Plt Count (150-450) k/uL PT (9.0-12.0) sec INR (<1.2) APTT (22.0-30.0) sec Sodium (137-145) mmol/L Potassium (3.5-5.1) mmol/L Chloride (98-107) mmol/L Carbon Dioxide (22-30) mmol/L Anion Gap mmol/L BUN (9-20) mg/dL Creatinine (0.66-1.25) mg/dL Est GFR (CKD-EPI)AfAm (>60 ml/min/1.73 sqM) Est GFR (CKD-EPI)NonAf (>60 ml/min/1.73 sqM) Glucose (74-99) mg/dL Plasma Lactic Acid Jose (0.7-2.0) mmol/L Calcium (8.4-10.2) mg/dL Total Bilirubin (0.2-1.3) mg/dL AST (17-59) U/L ALT (21-72) U/L Alkaline Phosphatase (38-126) U/L Troponin I (0.000-0.034) ng/mL Total Protein (6.3-8.2) g/dL Albumin (3.5-5.0) g/dL Influenza Type A RNA (Not Detectd) Influenza Type B (PCR) (Not Detectd) Group A Strep Rapid Negative (Negative) Disposition Clinical Impression: Sepsis, Cellulitis Disposition: ADMITTED IP TO THIS HOSP Condition: Serious Is patient prescribed a controlled substance at d/c from ED?: No Referrals: Bernadette Ridley MD [Primary Care Provider] - 1-2 days
[2018-10-23] MEDS: SODIUM CHLORIDE 0.9% IV SCH ×3 (05:18→06:57)
[2018-10-23 05:30] LABS: ALT 147 U/L (21-72); AST 112 U/L (17-59); Albumin 3.4 g/dL (3.5-5.0); Alkaline Phosphatase 37 U/L (38-126); Anion Gap 9 mmol/L; Blood Urea Nitrogen 25 mg/dL (9-20); Calcium 8.9 mg/dL (8.4-10.2); Carbon Dioxide 26 mmol/L (22-30); Chloride 101 mmol/L (98-107); Glucose 113 mg/dL (74-99); Potassium 4.1 mmol/L (3.5-5.1); Sodium 136 mmol/L (137-145); Total Bilirubin 0.7 mg/dL (0.2-1.3); Total Protein 6.6 g/dL (6.3-8.2)
[2018-10-23 06:04] LABS: HGB 12.5 gm/dL (13.0-17.5); MCH 29.1 pg (25.0-35.0); MCV 91.1 fL (80.0-100.0); Mean Platelet Volume 8.1; Platelet Count 138 k/uL (150-450); RBC 4.28 m/uL (4.30-5.90); WBC 9.5 k/uL (3.8-10.6)
[2018-10-23 06:09] LABS: Partial Thromboplastin Time 22.8 sec (22.0-30.0); Prothrombin Time 10.4 sec (9.0-12.0)
[2018-10-23] MEDS ORDERED: PIPERACILLIN-TAZOBACTAM 3.375 GM in SODIUM CHLORIDE 0.9% 100 ML IVPB STA (07:12)
[2018-10-23] MEDS ORDERED: LEVOFLOXACIN 750MG-D5W PMX 750 MG in DEXTROSE/WATER 1 150ML.BAG IVPB STA (07:12)
[2018-10-23 07:38] LABS: Lymphocytes # (M) 2.85 k/uL (1.0-4.8); Monocytes # (M) 0.95 k/uL (0-1.0); Neutrophils # (M) 5.61 k/uL (1.3-7.7); Neutrophils % (M) 59 %; Nucleated Red Blood Cells 0 /100 WBC (0-0); Total Cells Counted 100
[2018-10-23] MEDS: SODIUM CHLORIDE 0.9% 1,000 ML IV SCH ×3 (08:16→22:00)
[2018-10-23] MEDS: traMADol 50 MG TAB PO PRN ×2 (12:55→21:57)
[2018-10-23 13:00] LABS: Glucose,Whole Blood 86 mg/dL (75-99)
[2018-10-23 14:40] LABS: Glucose,Whole Blood 96 mg/dL (75-99)
[2018-10-23] MEDS ORDERED: PIPERACILLIN-TAZOBACTAM 3.375 GM in SODIUM CHLORIDE 0.9% 100 ML IVPB SCH (16:00)
[2018-10-23] MEDS: PANTOPRAZOLE 40 MG/10 ML VIAL IVP SCH (16:17)
[2018-10-23 17:27] LABS: Glucose,Whole Blood 103 mg/dL (75-99)
[2018-10-23] MEDS ORDERED: NON-FORMULARY DRUG (Omeprazole [Prilosec] 20 MG) PO SCH (17:30)
[2018-10-23 17:45] LABS: Appearance,Urine Clear (Clear); Bilirubin,Urine Negative (Negative); Blood,Urine Negative (Negative); Color,Urine Yellow; Glucose,Urine (UA) Negative (Negative); Ketones,Urine Negative (Negative); Leukocyte Esterase,Urine Negative (Negative); Nitrite,Urine Negative (Negative); Protein,Urine Negative (Negative); Specific Gravity,Urine 1.011 (1.001-1.035); Urobilinogen,Urine <2.0 mg/dL (<2.0)
[2018-10-23] MEDS: CHOLECALCIFEROL 1,000 UNIT TAB PO SCH (17:45)
[2018-10-23] MEDS: INSULIN ASPART 100 UNIT/ML 1 ML 10 ML VIAL SQ SCH ×2 (17:45→21:30)
[2018-10-23] MEDS: ceFAZolin IN SWFI 2 GM/20 ML SYRINGE IVP SCH ×2 (17:46→23:21)
[2018-10-23] MEDS ORDERED: MECLIZINE 25 MG TAB PO PRN (20:04)
[2018-10-23] MEDS ORDERED: ASPRIN PO PRN (20:04)
[2018-10-23] MEDS ORDERED: CAFF PO PRN (20:04)
[2018-10-23] MEDS ORDERED: BUTALB PO PRN (20:04)
[2018-10-23] MEDS ORDERED: ACETAMINOPHEN TAB 500 MG TAB PO PRN (20:05)
[2018-10-23 20:38] LABS: Glucose,Whole Blood 119 mg/dL (75-99)
[2018-10-23] MEDS: metFORMIN 500 MG TAB PO SCH (21:44)
[2018-10-23] MEDS: PREGABALIN 100 MG CAP PO SCH (21:44)
[2018-10-23] MEDS: MONTELUKAST 10 MG TAB PO SCH (21:44)
[2018-10-23] MEDS: DIAZEPAM 5 MG TAB PO SCH (21:44)
[2018-10-23] MEDS: HEPARIN SODIUM,PORCINE 5,000 UNIT/ML 1 ML VIAL SQ SCH (21:45)
[2018-10-23] MEDS: INSULIN DETEMIR 100 UNIT/ML 10 ML VIAL SQ SCH (21:45)
[2018-10-23] MEDS: ATORVASTATIN 10 MG TAB PO SCH (21:47)
[2018-10-23] MEDS: tiZANidine 4 MG TAB PO SCH (21:48)
[2018-10-23] MEDS: TEMAZEPAM 15 MG CAP PO PRN (21:57)
[2018-10-23] MEDS: LATANOPROST 0.005% OPHTH DROPS 2.5 ML BTL BOTH EYES SCH (22:28)
[2018-10-23 22:29] LABS: Hemoglobin A1C 8.1 % (4.0-6.0)
--- NOTE | 2018-10-23 23:05 | HP ---
HISTORY AND PHYSICAL DATE OF SERVICE: 10/23/2018 CHIEF COMPLAINTS: Weakness as well as fatigue and body aches. HISTORY OF PRESENT ILLNESS: This 33-year-old gentleman with a past medical history of multiple medical problems, including diabetes mellitus, history of CVA, TIA, history of GERD, hypertension, history of memory impairment, seizure disorder, sleep apnea, history of multiple sclerosis, being followed by Dr. Ridley in the outpatient setting, presented to [facility] with complaints of weakness, fatigue and body aches. The patient was trying to use the bathroom, but the patient was feeling so sick and weak he was unable to get up. The patient also had some diarrhea. Patient also is complaining of a scrotal ulcer which is nonhealing at this time. The patient also had previously multiple sclerosis exacerbation. He has seen a neurologist previously. There is no history of any fever, rigor or chills. No history of headache, loss of consciousness, seizures. The patient is being closely monitored at this time. At the time of admission the patient also had WBC 9.5, hemoglobin 12.5, glucose 113. AST and ALT were elevated. Otherwise, influenza was negative. The EKG showed normal sinus rhythm. PAST MEDICAL HISTORY: 1. History of diabetes mellitus, type 2. 2. GERD. 3. Hypertension. 4. History of memory impairment. 5. Seizure disorder. 6. Sleep apnea. HOME MEDICATIONS: 1. Ultram 50 mg q.4 p.r.n. 2. Zanaflex 4 mg p.o. t.i.d. 3. Metformin 1000 mg p.o. b.i.d. 4. Travatan 0.004% one drop both eyes at bedtime. 5. Aubagio 14 mg p.o. daily. 6. Zocor 20 mg at bedtime. 7. Lyrica 300 mg p.o. b.i.d. 8. Klor-Con 20 mEq p.o. daily. 9. Prilosec 20 mg p.o. b.i.d. 10.Singulair 10 mg p.o. at bedtime. 11.Antivert 25 mg t.i.d. p.r.n. 12.Levemir 35 units subcutaneously at bedtime. 13.NovoLog before meals t.i.d. 14.Motrin 800 mg t.i.d. p.r.n. 15.Lasix 20 mg p.o. daily. 16.Lofibra 160 mg p.o. daily. 17.Valium 5 mg p.o. b.i.d. 18.Vitamin D3 2000 daily. 19.Fiorinal 50/325 mg 40 mg one p.o. q.8 p.r.n. 20.Ampyra 10 mg p.o. b.i.d. ALLERGIES: ADDERALL AND CODEINE. FAMILY HISTORY: History of myocardial infarction in the family. SOCIAL HISTORY: History of THC. History of ongoing nicotine dependence. REVIEW OF SYSTEMS: ENT: No diminished hearing. No diminished vision. CARDIOVASCULAR SYSTEM: No angina, palpitations. RESPIRATORY SYSTEM: As mentioned earlier. GI: As mentioned earlier. : No dysuria or retention. NERVOUS SYSTEM: No numbness, weakness. ALLERGY/IMMUNOLOGY: No asthma, hayfever. MUSCULOSKELETAL: As mentioned earlier. HEMATOLOGY/ONCOLOGY: No history of anemia. ENDOCRINE: As mentioned earlier. CONSTITUTIONAL: As mentioned earlier. DERMATOLOGY: Negative. RHEUMATOLOGY: Negative. PSYCHIATRY: As mentioned earlier. PHYSICAL EXAMINATION: Patient alert and oriented x3. Pulse is 100, blood pressure 142/84, respiration 20, temperature 100 degrees, pulse ox 98% on 2 L. HEENT: Conjunctivae normal. Oral mucosa moist. NECK: No jugular venous distention. No carotid bruit. No lymph node enlargement. CARDIOVASCULAR SYSTEM: S1, S2 muffled. No S3. No S4. RESPIRATORY SYSTEM: Breath sounds diminished at the bases. A few scattered rhonchi and crackles. ABDOMEN: Soft, obese, non-tender. LEGS: No edema. No swelling. NERVOUS SYSTEM: Mild diffuse weakness. EXAMINATION OF THE PERINEUM, SCROTUM: A few rashes present. JOINTS: No active deforming arthropathy. LABS: WBC 9.5, hemoglobin 12.4. Sodium 136 and platelets 138. AST is 112 and ALT is 147. ASSESSMENT: 1. Perineal cellulitis with possible sepsis, present on admission. 2. Hyponatremia. 3. Increased AST, ALT, possibly hepatitis. 4. History of continued and ongoing nicotine dependence. 5. History of diffuse myalgia. 6. Diabetes mellitus, type 2. 7. Gastroesophageal reflux disease. 8. Hypertension. 9. History of memory impairment. 10.History of seizure disorder. 11.History of sleep apnea. 12.Multiple sclerosis. 13.History of glaucoma. 14.Super morbid obesity with a body mass index of 56.5. 15.Seizure disorder. 16.History of optic neuritis. 17.History of bipolar depression. 18.History of nicotine dependence. 19.History of tetrahydrocannabinol. RECOMMENDATIONS AND DISCUSSION: In this 33-year-old gentleman who presented with multiple complex medical issues, we will monitor the patient closely, continue the current medications, continue with symptomatic treatment. Will initiate broad-spectrum IV antibiotics. Cefazolin has been initiated and we will obtain infectious disease evaluation, cultures. Neurology evaluation. The serum lactic acid is only 1.6 at this time. Resume the rest of the medications. Symptomatic treatment of the pain. Overall prognosis is extremely guarded because of the multiple complex medical issues. Further recommendations to follow. A copy of this dictation is being forwarded to Dr. Ridley, who is the primary physician. See orders for further details. MMODL / IJN: [id number] /
[2018-10-24] MEDS: traMADol 50 MG TAB PO PRN (04:41)
[2018-10-24] MEDS: ceFAZolin IN SWFI 2 GM/20 ML SYRINGE IVP SCH ×4 (05:55→23:08)
[2018-10-24] MEDS: IBUPROFEN 800 MG TAB PO PRN ×2 (06:00→21:01)
[2018-10-24 07:10] LABS: Glucose,Whole Blood 102 mg/dL (75-99)
[2018-10-24] MEDS: INSULIN ASPART 100 UNIT/ML 1 ML 10 ML VIAL SQ SCH ×4 (07:13→23:05)
--- NOTE | 2018-10-24 07:24 | CONS ---
CONSULTATION DATE OF SERVICE: 10/23/2018. REASON FOR CONSULTATION: Bilateral lower extremity cellulitis. HISTORY OF PRESENT ILLNESS: The patient is a 33 -year-old he has been past medical history significant for initially presented to [facility] with complaint of generalized weakness and fatigue and body aches. The patient's symptoms have been going on for 2 days before he presented to the hospital. The patient also complaining of swelling and redness both legs, right more than left. The patient's pain to the right leg is mostly sharp to dull aching almost 7 to 8/10, and no radiation. Currently no open wound or any drainage. The patient denies having any chest pain. He did have shortness of breath. No cough. No nausea, vomiting. No abdominal pain. No diarrhea. On presentation to the hospital, patient did have fever of 101.9 degrees Fahrenheit. The patient was tachycardic. White count not significantly elevated. UA was negative. Influenza serology was negative. Patient was diagnosed with cellulitis. The patient has been treated with multiple antibiotics. Subsequently admitted to the hospital for bilateral lower extremity cellulitis and currently on Zosyn and Levaquin. Infectious Disease was consulted for further recommendation regarding antibiotic therapy. REVIEW OF SYSTEMS: Positive points have been mentioned in HPI. Rest of systems has been negative. PAST MEDICAL HISTORY: Multiple sclerosis, morbid obesity, hypertension, diabetes mellitus, CVA, TIA, seizure disorder, sleep apnea. PAST SURGICAL HISTORY: Colonoscopy, pilonidal cyst removal . PAST SOCIAL HISTORY: Current every day smoker. Did admit to marijuana use. No drinking alcohol. FAMILY HISTORY: Father history of ID. Mother history of CVA, TIA, diabetes mellitus, DVT and vascular disorder. ALLERGIES: AMPHETAMINES, DEXTROAMPHETAMINE AND CODEINE. MEDICATIONS: The patient is on Zosyn and Levaquin, Tylenol, Lipitor, vitamin D3, Valium, and Lofibrate, Lasix, heparin, Motrin, NovoLog, Levemir and Antivert, Glucophage, Singulair, Theragran, Protonix, Lyrica, Restoril, Zanaflex, and Ultram. PHYSICAL EXAMINATION: Blood pressure is 155/82 with a pulse of 101, temperature of 99.5, T max was 101 degrees Fahrenheit. He is 99% on 2 L nasal cannula. General description is a middle-aged male lying in bed in no distress. No tachypnea or accessory muscles of respiration use. HEENT: Shows no pallor or scleral icterus. Oral mucosa membranes are dry. No pharyngeal erythema or thrush. NECK: Trachea central. No thyromegaly. LUNGS unlabored breathing. Clear to auscultation anteriorly. No wheeze or crackles. Heart S1, S2. Regular rate and rhythm. ABDOMEN: Soft. No tenderness. No guarding, no rigidity. EXTREMITIES: Both legs have swelling with diffuse tenderness mostly in the right leg, which is warm and tender to touch. No skin breakdown or drainage. Skin exam: No rash or mass palpable. Neurologically: Patient is awake, alert, oriented times three. Mood and affect normal. LABS: Hemoglobin is 12.5, white count 9.5, and BUN of 25, creatinine 0.93, lactic acid 2.4. Electrolytes have been normal. Liver enzymes are elevated. Urine is negative. Influenza serology was negative. Group B strep was negative. DIAGNOSTIC IMPRESSION AND PLAN: Patient admitted to the hospital with sepsis in this patient who did have a fever 101.1 degrees. The patient did have tachycardia, source is bilateral lower extremity cellulitis, right greater the left in a patient who does have a diffuse swelling and redness likely a streptococcal with clinically doubt by gram-negative or MRSA infection. PLAN: 1. Discontinue Zosyn. 2. Will start the patient on cefazolin 2 g every 6 hours. 3. Baljeet the area of redness. 4. We will follow up on clinical condition and culture to further adjust medication if needed. Thank you for this consultation. We will follow this patient along with you. MMODL / IJN: [id number] /
[2018-10-24] MEDS: CHOLECALCIFEROL 1,000 UNIT TAB PO SCH (07:54)
[2018-10-24] MEDS: metFORMIN 500 MG TAB PO SCH ×2 (07:55→21:03)
[2018-10-24] MEDS: FUROSEMIDE 20 MG TAB PO SCH (07:55)
[2018-10-24] MEDS: FENOFIBRATE 160 MG TAB PO SCH (07:55)
[2018-10-24] MEDS: DIAZEPAM 5 MG TAB PO SCH ×2 (07:55→21:02)
[2018-10-24] MEDS: HEPARIN SODIUM,PORCINE 5,000 UNIT/ML 1 ML VIAL SQ SCH ×2 (07:55→21:03)
[2018-10-24] MEDS: NICOTINE 14MG/24HR PATCH TRANSDERM SCH (07:56)
[2018-10-24] MEDS: tiZANidine 4 MG TAB PO SCH ×3 (07:56→21:03)
[2018-10-24] MEDS: PREGABALIN 100 MG CAP PO SCH ×2 (07:56→21:02)
[2018-10-24] MEDS: SODIUM CHLORIDE 0.9% 1,000 ML IV SCH ×2 (07:56→23:08)
[2018-10-24] MEDS: PANTOPRAZOLE 40 MG/10 ML VIAL IVP SCH (07:57)
[2018-10-24] MEDS: POTASSIUM CHLORIDE ER 20 MEQ TAB.ER PO SCH (07:57)
[2018-10-24] MEDS ORDERED: LEVOFLOXACIN 750MG-D5W PMX 750 MG in DEXTROSE/WATER 1 150ML.BAG IVPB SCH (09:00)
[2018-10-24 10:07] LABS: Anion Gap 8 mmol/L; Blood Urea Nitrogen 14 mg/dL (9-20); Calcium 8.4 mg/dL (8.4-10.2); Carbon Dioxide 25 mmol/L (22-30); Chloride 100 mmol/L (98-107); Glucose 127 mg/dL (74-99); Potassium 3.9 mmol/L (3.5-5.1); Sodium 133 mmol/L (137-145)
[2018-10-24 10:20] LABS: HCT 36.3 % (39.0-53.0); HGB 11.6 gm/dL (13.0-17.5); MCH 28.7 pg (25.0-35.0); MCHC 32.1 g/dL (31.0-37.0); MCV 89.6 fL (80.0-100.0); Mean Platelet Volume 8.1; Platelet Count 120 k/uL (150-450); RBC 4.05 m/uL (4.30-5.90); RDW 14.9 % (11.5-15.5); WBC 9.1 k/uL (3.8-10.6)
[2018-10-24 10:29] LABS: C Reactive Protein 148.5 mg/L (<10.0)
[2018-10-24 11:00] LABS: Band Neutrophils % 6 %; Eosinophils # (M) 0.18 k/uL (0-0.7); Lymphocytes # (M) 3.73 k/uL (1.0-4.8); Monocytes # (M) 0.64 k/uL (0-1.0); Neutrophils % (M) 44 %; Nucleated Red Blood Cells 0 /100 WBC (0-0); Total Cells Counted 100
[2018-10-24 11:13] VITALS: BMI 56.5
[2018-10-24 11:29] LABS: Erythrocyte Sedimentation Rate 18 mm/hr (0-15)
[2018-10-24 11:38] LABS: Glucose,Whole Blood 142 mg/dL (75-99)
[2018-10-24] MEDS: MULTIVITAMINS, THERA 1 EACH TAB PO SCH (13:45)
[2018-10-24 16:31] LABS: Glucose,Whole Blood 185 mg/dL (75-99)
[2018-10-24] MEDS ORDERED: ONDANSETRON 4 MG/2 ML VIAL IVP PRN (16:32)
--- NOTE | 2018-10-24 16:49 | US ---
EXAMINATION TYPE: US scrotum with doppler. Grayscale and color Doppler Duplex imaging performed of t he scrotum. DATE OF EXAM: 10/24/2018 COMPARISON: NONE CLINICAL HISTORY: R/O abscess . Small wound at perineum EXAM MEASUREMENTS: TESTICLES: Right Testicle: 3.1 x 1.5 x 2.5 cm Left Testicle: 3.8 x 1.5 x 2.7 cm EPIDIDYMIS HEAD: Right Epididymis: unable to visualize Left Epididymis: unable to visualize Doppler performed to assess for testicular vascularity; good bilateral color flow and waveforms are s een. There is no evidence of testicular torsion. Presence of hydroceles: no Presence of varicoceles: no Technical limitations due to patient's body habitus Scanned within area of concern, perineum, unable to visualize any discrete fluid collection IMPRESSION: No testicular torsion or mass. No discrete solid or cystic fluid collection identified in the area of concern at the wound.
--- NOTE | 2018-10-24 20:54 | PN ---
PROGRESS NOTE DATE OF SERVICE: 10/25/2018. REASON FOR FOLLOWUP: 1. Bilateral lower extremity cellulitis. 2. Bacteremia. INTERVAL HISTORY: The patient overall fever pattern has improved. The patient is breathing comfortably. Denies having any chest pain or shortness of breath or cough. No abdominal pain, bilateral leg swelling and redness has decreased. No purulent wound drainage and no diarrhea with antibiotic therapy. EXAMINATION: Blood pressure 137/84 with a pulse of 99, temperature 98.9. He is 95% on room air. The patient is a middle-aged male lying in bed in no distress. Respiratory system: Unlabored breathing, clear to auscultation anteriorly. Heart S1, S2. Regular rate and rhythm. Abdomen soft, no tenderness. Bilateral leg with swelling with which much improved. No open wound or any drainage. LABS: Hemoglobin 11.6, white count 9.1. BUN of 14, creatinine 0.94. Blood cultures with coagulase-negative Staph. DIAGNOSTIC IMPRESSION AND PLAN: 1. Patient with bilateral lower extremity cellulitis with diffuse swelling and redness likely streptococcal disease. The patient seemed to have shown clinical improvement to the Cephazolin that will be continued. 2. The patient to follow up on blood cultures coagulase encephalitis no need for any antibiotic therapy for the same. MMODL / IJN: [id number] /
[2018-10-24] MEDS: MONTELUKAST 10 MG TAB PO SCH (21:03)
[2018-10-24] MEDS: TEMAZEPAM 15 MG CAP PO PRN (21:03)
[2018-10-24] MEDS: LATANOPROST 0.005% OPHTH DROPS 2.5 ML BTL BOTH EYES SCH (21:03)
[2018-10-24] MEDS: ATORVASTATIN 10 MG TAB PO SCH (21:03)
[2018-10-24 21:40] LABS: Glucose,Whole Blood 150 mg/dL (75-99)
[2018-10-24] MEDS: INSULIN DETEMIR 100 UNIT/ML 10 ML VIAL SQ SCH (23:06)
[2018-10-25] MEDS: ceFAZolin IN SWFI 2 GM/20 ML SYRINGE IVP SCH ×2 (05:43→13:20)
[2018-10-25 07:17] LABS: Glucose,Whole Blood 184 mg/dL (75-99)
[2018-10-25] MEDS: PREGABALIN 100 MG CAP PO SCH (07:29)
[2018-10-25] MEDS: FUROSEMIDE 20 MG TAB PO SCH (07:29)
[2018-10-25] MEDS: CHOLECALCIFEROL 1,000 UNIT TAB PO SCH (07:29)
[2018-10-25] MEDS: DIAZEPAM 5 MG TAB PO SCH (07:29)
[2018-10-25] MEDS: FENOFIBRATE 160 MG TAB PO SCH (07:29)
[2018-10-25] MEDS: metFORMIN 500 MG TAB PO SCH (07:29)
[2018-10-25] MEDS: POTASSIUM CHLORIDE ER 20 MEQ TAB.ER PO SCH (07:29)
[2018-10-25] MEDS: INSULIN ASPART 100 UNIT/ML 1 ML 10 ML VIAL SQ SCH ×2 (07:30→12:12)
[2018-10-25] MEDS ORDERED: PANTOPRAZOLE 40 MG TABLET PO SCH (07:30)
[2018-10-25] MEDS: NICOTINE 14MG/24HR PATCH TRANSDERM SCH ×2 (07:30→07:39)
[2018-10-25] MEDS: HEPARIN SODIUM,PORCINE 5,000 UNIT/ML 1 ML VIAL SQ SCH (07:30)
[2018-10-25] MEDS: tiZANidine 4 MG TAB PO SCH ×2 (07:40→15:09)
[2018-10-25 08:26] VITALS: RESP 16
--- NOTE | 2018-10-25 08:31 | CONS ---
CONSULTATION DATE OF CONSULTATION: 10/24/2018 CHIEF COMPLAINT: History of multiple sclerosis. HISTORY OF PRESENT ILLNESS: Mr. Poole is a 33-year-old, male, who is being evaluated today on 10/24/2018 by the Neurology Service per the request of Dr. Maradiaga for a history of multiple sclerosis. The patient was brought into [facility] with the main complaint of bilateral lower extremity pain. He was noticed to have significant swelling in his legs and evidence of cellulitis. He was started on IV antibiotics and Infectious Disease has been consulted. The patient does have a history of multiple sclerosis and does take Aubagio oral tablets for this. He denies any symptoms concerning for any multiple sclerosis exacerbation. The patient is morbidly obese and does have limited mobility. PAST MEDICAL HISTORY: Multiple sclerosis, diabetes, gastroesophageal reflux disease, hypertension, seizure disorder, obstructive sleep apnea, migraine headaches, dyslipidemia. SOCIAL HISTORY: The patient is a current everyday smoker. He denies any alcohol or IV drug use. FAMILY HISTORY: Positive for heart disease. HOME MEDICATIONS: Reviewed in the chart. ALLERGIES: CODEINE and ADDERALL. REVIEW OF SYSTEMS: As mentioned above and also positive for fatigue and occasional diarrhea. Otherwise, review of system is negative. PHYSICAL EXAM: Vital signs show a temperature of 98.9, pulse 99, respirations 16, blood pressure 137/84. GENERAL APPEARANCE: The patient is a morbidly obese male who appears to be in no acute distress. HEENT: Normocephalic, atraumatic. no facial asymmetry is seen. NECK: Supple with no masses felt. CARDIOVASCULAR: Regular rate and rhythm. ABDOMEN: Obese, nontender, nondistended. EXTREMITIES: Showed edema. Erythema is seen in bilateral lower extremities. NEUROLOGICAL EXAM: The patient is awake and oriented x3. Speech and language are normal. Strength is 4/5 in bilateral lower extremities and 5-/5 in bilateral upper extremities. Sensory exam showed diminished light touch sensation in bilateral distal lower extremities. No tremors or seizure-like activity is seen. No facial asymmetry is noticed on cranial nerve testing. IMPRESSION: 1. History of multiple sclerosis. 2. Acute cellulitis. 3. Generalized weakness. 4. Morbid obesity. RECOMMENDATION: The patient does have a long-standing history of multiple sclerosis and is on Aubagio oral tablets. There is no evidence of any acute exacerbation at this time. He does have a baseline of mild generalized weakness mainly given his comorbidities and body habitus. He was advised to have someone bring him his Aubagio tablets from home so he can continue on this therapy while he is in the hospital. Continue antibiotic therapy. Infectious Disease is following regarding the cellulitis. No further neurological workup is needed. I will sign off at this time. Thank you for allowing me to participate in the care of your patient. If you have any questions, please feel free to contact me. SHANIQUE / ALEXANDER: [id number] /
[2018-10-25 09:07] LABS: Basophils # (A) 0.1 k/uL (0-0.2); Basophils % (A) 1 %; Eosinophils # (A) 0.1 k/uL (0-0.7); Eosinophils % (A) 1 %; HCT 36.6 % (39.0-53.0); HGB 11.9 gm/dL (13.0-17.5); Lymphocytes # (A) 2.5 k/uL (1.0-4.8); Lymphocytes % (A) 30 %; MCH 28.9 pg (25.0-35.0); MCHC 32.5 g/dL (31.0-37.0); MCV 89.1 fL (80.0-100.0); Mean Platelet Volume 9.4; Monocytes # (A) 0.3 k/uL (0-1.0); Monocytes % (A) 4 %; Neutrophils # (A) 5.1 k/uL (1.3-7.7); Neutrophils % (A) 61 %; Platelet Count 102 k/uL (150-450); WBC 8.3 k/uL (3.8-10.6)
[2018-10-25 09:20] LABS: Anion Gap 7 mmol/L; Blood Urea Nitrogen 13 mg/dL (9-20); Calcium 8.4 mg/dL (8.4-10.2); Carbon Dioxide 24 mmol/L (22-30); Chloride 102 mmol/L (98-107); Glucose 190 mg/dL (74-99); Sodium 133 mmol/L (137-145)
[2018-10-25] MEDS: traMADol 50 MG TAB PO PRN ×2 (10:00→15:09)
[2018-10-25] MEDS ORDERED: DIPHENOX-ATROP 2.5-0.025 MG 1 EACH TAB PO PRN (11:05)
[2018-10-25 12:10] LABS: Glucose,Whole Blood 170 mg/dL (75-99)
[2018-10-25] MEDS: MULTIVITAMINS, THERA 1 EACH TAB PO SCH (12:11)
[2018-10-25] MEDS: SODIUM CHLORIDE 0.9% 1,000 ML IV SCH (13:24)
[2018-10-25 15:53] VITALS: BP 130/68; PULSE 102; TEMP 99.2
--- NOTE | 2018-10-25 16:50 | P.DS ---
Providers Date of admission: 10/23/18 07:12 Expected date of discharge: 10/25/18 Attending physician: Jos Garcia Final Diagnoses: -Perineal cellulitis with possible sepsis, present on admission -Bilateral lower extremity cellulitis, suspect streptococcal disease -Diabetes mellitus type 2 -Ongoing nicotine dependence -Increased AST, ALT, possibly hepatitis -History of multiple sclerosis -Morbid obesity, BMI 56.5 Hospital course: This is a 33-year-old gentleman admitted with perineal cellulitis, possible sepsis, bilateral lower extremity cellulitis and multiple other medical issues. Ultrasound/Doppler reporting no evidence of testicular torsion, no hydrocephalus no varicoceles, no discrete fluid collection visualized within perineum-in the area of concern at the wound. Evaluated by infectious disease. Maintained on IV antibiotics. Significant clinical improvement. Cleared by infectious disease for discharge. Patient is being discharged home today in a stable condition with guarded prognosis. Exam: Alert and oriented 3, no acute distress. CV: Regular S1 and S2, no murmurs rubs or gallops. LUNGS: Bilateral bases diminished.ABD: Soft, obese, nontender, positive bowel sounds.SKIN: Improved bilateral leg edema, no open wound or any drainage. The impression and plan of care has been dictated as directed. Dr.: I performed a history and examination of this patient, discussed the same with the dictator. I agree with the dictator's note ,documented as a scribe. Any additional findings or plans will be noted. Time taken: 35 minutes Consults: 10/23/18 07:12 Consult Physician Routine Consulting Provider: Maynor Weinberg Consult Reason/Comments: your patient. MS. Do you want consulting provider notified?: Yes 10/23/18 12:44 Consult Physician Routine Consulting Provider: Anu Fuentes Consult Reason/Comments: sepsis Do you want consulting provider notified?: Yes Primary care physician: Bernadette Ridley Patient Condition at Discharge: Serious Plan - Discharge Summary Discharge Rx Participant: No New Discharge Prescriptions: New Cephalexin [Keflex] 500 mg PO Q6HR #40 cap Multivitamins, Thera [Multivitamin (formulary)] 1 each PO DAILY@1200 #30 tab Nicotine 14Mg/24Hr Patch [Habitrol] 1 patch TRANSDERM DAILY #30 patch Continue Travoprost [Travatan Z 0.004%] 1 drop BOTH EYES HS Furosemide [Lasix] 20 mg PO DAILY Simvastatin [Zocor] 20 mg PO HS Omeprazole [PriLOSEC] 20 mg PO AC-BID tiZANidine [Zanaflex] 4 mg PO TID Ibuprofen [Motrin] 800 mg PO TID PRN PRN Reason: Pain traMADol HCl [Ultram] 50 mg PO Q4HR PRN PRN Reason: Pain Pregabalin [Lyrica] 300 mg PO BID Meclizine [Antivert] 25 mg PO TID PRN PRN Reason: Nausea Montelukast [Singulair] 10 mg PO HS Fenofibrate [Lofibra] 160 mg PO DAILY Diazepam [Valium] 5 mg PO BID Insulin Detemir [Levemir] 35 unit SQ HS metFORMIN HCL 1,000 mg PO BID Insulin Aspart [NovoLOG (formulary)] See Protocol SQ AC-TID Potassium Chloride [Klor-Con 20] 20 meq PO DAILY Ampyra 10mg 10 mg PO Q12H Cholecalciferol [Vitamin D3] 2,000 unit PO DAILY Teriflunomide [Aubagio] 14 mg PO DAILY Butalb/Asprin/Caff 50-325-40Mg [Fiorinal 50-325-40 MG] 1 cap PO Q8HR PRN PRN Reason: Headache Discharge Medication List Diazepam [Valium] 5 mg PO BID 12/24/14 [History] Fenofibrate [Lofibra] 160 mg PO DAILY 12/24/14 [History] Furosemide [Lasix] 20 mg PO DAILY 12/24/14 [History] Ibuprofen [Motrin] 800 mg PO TID PRN 12/24/14 [History] Meclizine [Antivert] 25 mg PO TID PRN 12/24/14 [History] Montelukast [Singulair] 10 mg PO HS 12/24/14 [History] Omeprazole [PriLOSEC] 20 mg PO AC-BID 12/24/14 [History] Pregabalin [Lyrica] 300 mg PO BID 12/24/14 [History] Simvastatin [Zocor] 20 mg PO HS 12/24/14 [History] Travoprost [Travatan Z 0.004%] 1 drop BOTH EYES HS 12/24/14 [History] tiZANidine [Zanaflex] 4 mg PO TID 12/24/14 [History] traMADol HCl [Ultram] 50 mg PO Q4HR PRN 12/24/14 [History] Ampyra 10mg 10 mg PO Q12H 10/04/17 [History] Cholecalciferol [Vitamin D3] 2,000 unit PO DAILY 10/04/17 [History] Insulin Aspart [NovoLOG (formulary)] See Protocol SQ AC-TID 10/04/17 [History] Insulin Detemir [Levemir] 35 unit SQ HS 10/04/17 [History] Potassium Chloride [Klor-Con 20] 20 meq PO DAILY 10/04/17 [History] Teriflunomide [Aubagio] 14 mg PO DAILY 10/04/17 [History] metFORMIN HCL 1,000 mg PO BID 10/04/17 [History] Butalb/Asprin/Caff 50-325-40Mg [Fiorinal 50-325-40 MG] 1 cap PO Q8HR PRN [History] Cephalexin [Keflex] 500 mg PO Q6HR #40 cap 10/25/18 [Rx] Multivitamins, Thera [Multivitamin (formulary)] 1 each PO DAILY@1200 #30 tab [Rx] Nicotine 14Mg/24Hr Patch [Habitrol] 1 patch TRANSDERM DAILY #30 patch 10/25/18 [ Rx] Follow up Appointment(s)/Referral(s): Bernadette Ridley MD [Primary Care Provider] - 3 Days Anu Fuentes MD [STAFF PHYSICIAN] - 1 Week Ambulatory/Diagnostic Orders: Complete Blood Count w/diff [LAB.AMB] Time Frame: 3 Days, Location: None Selected Patient Instructions/Handouts: Cellulitis (DC) Activity/Diet/Wound Care/Special Instructions: Wound care as per ID
--- NOTE | 2018-10-25 22:10 | PN ---
PROGRESS NOTE DATE OF SERVICE: 10/25/2018 REASON FOR CONSULTATION: 1. Bilateral lower extremity cellulitis. 2. Positive blood culture. INTERVAL HISTORY: The patient was seen on rounds earlier this afternoon. The patient did have a low- grade fever of 100.3 this morning; however, he has been afebrile since then. He is breathing comfortably. Denies having any chest pain or shortness of breath or cough. No abdominal pain or any pain to the leg area. PHYSICAL EXAMINATION: Blood pressure 130/68 with a pulse of 102, temperature 99.2. He is 97% on 2 L nasal cannula. General description is a middle-aged male up in the chair in no distress. RESPIRATORY SYSTEM: Unlabored breathing with decreased breath sounds at the base. No wheeze. HEART: S1, S2. Regular rate and rhythm. ABDOMEN: Soft. No tenderness. LABS: Hemoglobin 11.9, white count 8.3, BUN of 13, creatinine 0.73. DIAGNOSTIC IMPRESSION AND PLAN: 1. Patient with bilateral lower extremity cellulitis, likely streptococcal disease. The patient has shown clinical improvement on cefazolin. That will be transitioned to Keflex 500 mg p.o. q.6 hours for 10 days. 2. Positive blood culture with Staphylococcus hominis, likely skin contamination. No need for any therapy for the same. MMODL / IJN: [id number] /
--- NOTE | 2018-10-25 22:17 | P.PN ---
Subjective Progress Note Date: 10/24/18 Progress note being dictated for Dr. Maradiaga. Interval history:This is a 33-year-old gentleman admitted with perineal cellulitis, possible sepsis, bilateral lower extremity cellulitis and multiple other medical issues. Scrotal/perineal Ultrasound/Doppler ordered, ruling out abscess. Maintained on IV antibiotics. Evaluated by infectious disease with recommendations noted. T-max of 101.6. Normal WBC. Good diet intake with no nausea or vomiting. Blood cultures reporting gram positive cocci in clusters. Cellulitis improving with no open or weeping areas. Objective - Vital Signs Vital signs: Vital Signs Temp 98.9 F 10/24/18 14:26 Pulse 99 10/24/18 14:26 Resp 16 10/24/18 14:26 BP 137/84 10/24/18 14:26 Pulse Ox 95 10/24/18 14:26 Intake & Output 10/24/18 10/24/18 10/25/18 06:59 18:59 06:59 Output Total 1300 Balance -1300 Weight 163.747 kg Output: Urine 1300 Straight 700 Other: Voiding Method Diaper Incontinent # Voids 3 2 # Bowel Movements 1 - Exam PHYSICAL EXAM: VITAL SIGNS: As above GENERAL: Sitting up in bed, no acute distress HEENT: Conjunctivae normal. eyes normal. Oral mucosa moist NECK: No JVD. No thyroid enlargement. No LNs CARDIOVASCULAR: S1, S2 muffled. No murmur RESPIRATION: Breath sounds diminished in the bases. No rhonchi or crackles. No bronchial breathing. ABDOMEN: Soft, nontender . No guarding. no masses palpable. Bowel sounds heard. LEGS: Improving bilateral leg edema with no open wound, no drainage PSYCHIATRY: Alert and oriented -3, mood and affect normal. NERVOUS SYSTEM: Cranial N 2-12 grossly normal. Moves all 4 limbs. Diffuse weakness No focal deficits. - Labs CBC & Chem 7: 10/25/18 08:29 10/25/18 08:29 Labs: Abnormal Lab Results - Last 24 Hours (Table) 10/24/18 10/24/18 10/24/18 Range/Units 06:51 09:10 09:10 RBC 4.05 L (4.30-5.90) m/uL Hgb 11.6 L (13.0-17.5) gm/dL Hct 36.3 L (39.0-53.0) % Plt Count 120 L (150-450) k/uL ESR 18 H (0-15) mm/hr Sodium 133 L (137-145) mmol/L Glucose 127 H (74-99) mg/dL POC Glucose (mg/dL) 102 H (75-99) mg/dL C-Reactive Protein 148.5 H (<10.0) mg/L 10/24/18 10/24/18 10/24/18 Range/Units 11:35 16:28 21:38 RBC (4.30-5.90) m/uL Hgb (13.0-17.5) gm/dL Hct (39.0-53.0) % Plt Count (150-450) k/uL ESR (0-15) mm/hr Sodium (137-145) mmol/L Glucose (74-99) mg/dL POC Glucose (mg/dL) 142 H 185 H 150 H (75-99) mg/dL C-Reactive Protein (<10.0) mg/L Microbiology - Last 24 Hours (Table) 10/23/18 04:31 Blood Culture Gram Stain - Preliminary Blood Blood Culture - Preliminary Coagulase Negative Staph 10/23/18 04:31 Blood Culture - Final Blood 10/23/18 17:35 Urine Culture - Preliminary Urine,Catheterized Assessment and Plan Assessment: -Perineal cellulitis with possible sepsis, present on admission -Bilateral lower extremity cellulitis, suspect streptococcal disease -Diabetes mellitus type 2 -Ongoing nicotine dependence -Increased AST, ALT, possibly hepatitis -History of multiple sclerosis -Morbid obesity, BMI 56.5 Plan: Continue on current medication regime ,monitoring and symptomatic treatment. Ultrasound of perineum and scrotum ordered, ruling out abscess. GI and DVT prophylaxis. Aggressive pulmonary toileting. Follow closely with infectious disease. The impression and plan of care has been dictated as directed. : I performed a history and examination of this patient, discussed the same with the dictator. I agree with the dictator's note ,documented as a scribe. Any additional findings or plans will be noted.
== END 2018-10-25 17:57 | disposition home or self-care (01) | DRG 872 ==
LOC: EC 04:12 → 4MS4W 07:12
PROVIDERS: ADMIT Hospitalist; ATTEND Hospitalist
DX: A40.9 Streptococcal sepsis, unspecified (principal); E87.1 Hypo-osmolality and hyponatremia; F31.30 Bipolar disorder, current episode depressed, mild or moderate severity, unspecified; L03.315 Cellulitis of perineum; L03.116 Cellulitis of left lower limb; L03.115 Cellulitis of right lower limb; Z68.43 Body mass index [BMI] 50.0-59.9, adult; E11.9 Type 2 diabetes mellitus without complications; E66.01 Morbid (severe) obesity due to excess calories; E78.5 Hyperlipidemia, unspecified; F17.200 Nicotine dependence, unspecified, uncomplicated; G35 Multiple sclerosis; G40.909 Epilepsy, unspecified, not intractable, without status epilepticus; G47.33 Obstructive sleep apnea (adult) (pediatric); H40.9 Unspecified glaucoma; I10 Essential (primary) hypertension; K21.9 Gastro-esophageal reflux disease without esophagitis; N50.89 Other specified disorders of the male genital organs; Z79.4 Long term (current) use of insulin; Z79.899 Other long term (current) drug therapy; Z81.1 Family history of alcohol abuse and dependence; Z82.49 Family history of ischemic heart disease and other diseases of the circulatory system; Z83.3 Family history of diabetes mellitus; Z86.73 Personal history of transient ischemic attack (TIA), and cerebral infarction without residual deficits
CPT/HCPCS: 36415; 76870; 80048; 80053; 81003; 83036; 83605; 84484; 85025; 85610; 85652; 85730; 86140; 87040; 87077; 87081; 87086; 87150; 87186; 87430; 87502; 93005; 93975; 96365; 96366; 96367; 99285

== ENCOUNTER → 2019-04-22 | Outpatient (CLI) | payer MEDICARE, OTHER ==
[2019-04-22 11:44] LABS: Basophils % (A) 1 %; Eosinophils # (A) 0.1 k/uL (0-0.7); Eosinophils % (A) 1 %; HCT 39.5 % (39.0-53.0); HGB 12.6 gm/dL (13.0-17.5); Lymphocytes # (A) 2.3 k/uL (1.0-4.8); Lymphocytes % (A) 35 %; MCH 28.4 pg (25.0-35.0); MCHC 31.9 g/dL (31.0-37.0); MCV 89.2 fL (80.0-100.0); Mean Platelet Volume 7.7; Monocytes # (A) 0.5 k/uL (0-1.0); Monocytes % (A) 8 %; Neutrophils # (A) 3.4 k/uL (1.3-7.7); Neutrophils % (A) 53 %; Platelet Count 213 k/uL (150-450); RBC 4.42 m/uL (4.30-5.90); RDW 15.3 % (11.5-15.5); WBC 6.5 k/uL (3.8-10.6)
[2019-04-22 16:58] LABS: Vitamin D 25 Hydroxy 48.7 ng/mL (30.0-100.0)
[2019-04-22 17:19] LABS: African American GFR (CKD) 113.3 (60.0-200.0); Albumin 4.3 g/dL (3.80-4.90); Albumin/Globulin Ratio 1.72 (1.60-3.17); Anion Gap 4.8 mmol/L (4.00-12.00); Calcium 9.6 mg/dL (8.7-10.3); Carbon Dioxide 30.2 mmol/L (21.6-31.8); Globulin 2.5 g/dL (1.6-3.3); Potassium 4.4 mmol/L (3.5-5.5); Total Bilirubin 0.5 mg/dL (0.3-1.2); Total Protein 6.8 g/dL (6.2-8.2)
== END | disposition home or self-care (01) ==
LOC: LABWHC1 11:04
PROVIDERS: ATTEND Nurse Practitioner Acute Care
DX: G35 Multiple sclerosis (principal); E55.9 Vitamin D deficiency, unspecified; Z51.81 Encounter for therapeutic drug level monitoring
CPT/HCPCS: 36415; 80053; 82306; 82607; 84207; 85025

== ENCOUNTER → 2020-06-25 | Outpatient (CLI) | payer MEDICARE, OTHER ==
[2020-06-25 19:46] LABS: African American GFR (CKD) 99.6 (60.0-200.0); Albumin 4.5 g/dL (3.80-4.90); Albumin/Globulin Ratio 1.88 (1.60-3.17); Anion Gap 7.9 mmol/L (4.00-12.00); BUN/Creat Ratio 15.45 Ratio (12.00-20.00); Calcium 9.5 mg/dL (8.7-10.3); Carbon Dioxide 25.1 mmol/L (21.6-31.8); Chol/HDL Ratio 6.35; Globulin 2.4 g/dL (1.6-3.3); LDL Cholesterol,Calculated 101.2 mg/dL (0.0-131.0); Non-African American GFR(CKD) 85.9 (60.0-200.0); Potassium 4.6 mmol/L (3.5-5.5); Total Bilirubin 0.5 mg/dL (0.2-1.2); Total Protein 6.9 g/dL (6.2-8.2); VLDL Calculation 64.8 mg/dL (5.00-40.00)
[2020-06-25 21:05] LABS: Hemoglobin A1C 6.7 % (4.0-6.0)
== END | disposition home or self-care (01) ==
LOC: LABWHC1 12:01
PROVIDERS: ATTEND Internal Medicine Endocrinology, Diabetes & Metabolism
DX: E55.9 Vitamin D deficiency, unspecified (principal); G35 Multiple sclerosis
CPT/HCPCS: 36415; 80053; 80061; 82306; 83036; 84443

== ENCOUNTER 2020-12-29 22:26 | Inpatient (IN) | payer MEDICARE, OTHER ==
--- NOTE | 2020-12-29 22:33 | ED ---
Recheck HPI - General Stated Complaint: Weakness Time Seen by Provider: 12/29/20 22:31 Source: RN notes reviewed, old records reviewed Mode of arrival: EMS Limitations: no limitations - History of Present Illness Initial Comments: This is a 35-year-old male DF for evaluation patient Dese for evaluation regards to weakness accepted in transfer from [facility] for failing MS. Feeling outpatient treatment. Patient does follow Dr. Weinberg was seen by consult, telemetry neurologist. Transferred here for [id number] neuro consultation. Patient has no recent complaints he has been admitted for similar issues in the past MD Complaint: wound re-check (patient states he has sacral decubitul ulcer on arrival), other (MS exac) Returns Today for: other (INC weakness) Symptoms Since Prior Visit: no new symptoms Context: planned re-check (transfer for neuro evaluation) Associated Symptoms: none - Related Data Home Medications Medication Instructions Recorded Confirmed Fenofibrate [Lofibra] 160 mg PO DAILY 12/24/14 01/09/20 Furosemide [Lasix] 20 mg PO DAILY 12/24/14 01/09/20 Ibuprofen [Motrin] 800 mg PO TID PRN 12/24/14 01/09/20 Meclizine [Antivert] 25 mg PO TID PRN 12/24/14 01/09/20 Montelukast [Singulair] 10 mg PO HS 12/24/14 01/09/20 Omeprazole [PriLOSEC] 20 mg PO AC-BID 12/24/14 01/09/20 Pregabalin [Lyrica] 300 mg PO BID 12/24/14 01/09/20 Simvastatin [Zocor] 20 mg PO HS 12/24/14 01/09/20 Travoprost [Travatan Z 0.004%] 1 drop BOTH EYES HS 12/24/14 01/09/20 tiZANidine [Zanaflex] 4 mg PO TID 12/24/14 01/09/20 traMADol HCl [Ultram] 50 mg PO Q4HR PRN 12/24/14 01/09/20 Ampyra 10mg 10 mg PO Q12H 10/04/17 01/09/20 Cholecalciferol [Vitamin D3 (25 2,000 unit PO DAILY 10/04/17 01/09/20 Mcg = 1000 Iu)] INSULIN ASPART (NovoLOG) [NovoLOG See Protocol SQ AC-TID 10/04/17 01/09/20 (formulary)] Insulin Detemir (Levemir) [Levemir] 35 unit SQ HS 10/04/17 01/09/20 Potassium Chloride [Klor-Con 20] 20 meq PO DAILY 10/04/17 01/09/20 Teriflunomide [Aubagio] 14 mg PO DAILY 10/04/17 01/09/20 metFORMIN HCL 1,000 mg PO BID 10/04/17 01/09/20 Butalb/Asprin/Caff 50-325-40Mg 1 cap PO Q8HR PRN 09/19/18 01/09/20 [Fiorinal 50-325-40 MG] Previous Rx's Medication Instructions Recorded Multivitamins, Thera [Multivitamin 1 each PO DAILY@1200 #30 tab 10/25/18 (formulary)] Allergies Allergy/AdvReac Type Severity Reaction Status Date / Time amphetamine [From Adderall] Allergy Unknown Verified 12/29/20 22:36 dextroamphetamine Allergy Unknown Verified 12/29/20 22:36 [From Adderall] codeine AdvReac Nausea & Verified 12/29/20 22:36 Vomiting Review of Systems ROS Statement: Those systems with pertinent positive or pertinent negative responses have been documented in the HPI. ROS Other: All systems not noted in ROS Statement are negative. 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 OPTIC NEURITIS, pt states he currently has a wound R scrotum. History of Any Multi-Drug Resistant Organisms: None Reported Additional Past Surgical History / Comment(s): Pilonidial cyst removal, lumbar puncture, colonoscopy, past R thigh ulcer debridement. Past Anesthesia/Blood Transfusion Reactions: No Reported Reaction Additional Past Anesthesia/Blood Transfusion Reaction / Comment(s): Pt has never had a blood transfusion. Past Psychological History: Bipolar, Depression Additional Psychological History / Comment(s): Rage disorder under control-no longer requires meds for this. Pt resides in his apartment -his 16 year old nephew lives with him. Patient has an electric wheelchair, is no longer ambulatory. Patient has a home aid that comes to his house 3 times weekly who does his grocery shopping and assists him with his ADLS. Past Alcohol Use History: None Reported Additional Past Alcohol Use History / Comment(s): started smoking 1994 smokes 1/2 to 1 ppd Past Drug Use History: Marijuana Additional Drug Use History / Comment(s): Pt states he smokes marijuana daily out of a pipe. - Past Family History Father Family Medical History: No Reported History, Myocardial Infarction ([place]) Additional Family Medical History / Comment(s): Father was an alcoholic and "drank himself to ." Mother Family Medical History: Blood Disorder, CVA/TIA, Diabetes Mellitus, Deep Vein T hrombosis (DVT), Myocardial Infarction ([place]), Vascular Disorder Additional Family Medical History / Comment(s): Several CVAs, several DVTs, PVT with stents in legs. General Exam General appearance: alert, in no apparent distress, obese Head exam: Present: atraumatic, normocephalic, normal inspection Eye exam: Present: normal appearance, PERRL, EOMI. Absent: scleral icterus, conjunctival injection, periorbital swelling ENT exam: Present: normal exam, mucous membranes moist Neck exam: Present: normal inspection. Absent: tenderness, meningismus, lymphadenopathy Respiratory exam: Present: normal lung sounds bilaterally. Absent: respiratory distress, wheezes, rales, rhonchi, stridor Cardiovascular Exam: Present: regular rate, normal rhythm, normal heart sounds. Absent: systolic murmur, diastolic murmur, rubs, gallop, clicks GI/Abdominal exam: Present: soft, normal bowel sounds. Absent: distended, tenderness, guarding, rebound, rigid Extremities exam: Present: normal inspection, full ROM, normal capillary refill. Absent: tenderness, pedal edema, joint swelling, calf tenderness Back exam: Present: normal inspection Neurological exam: Present: alert, oriented X3, CN II-XII intact Psychiatric exam: Present: normal affect, normal mood Skin exam: Present: warm, dry, intact, normal color. Absent: rash Course Vital Signs 12/29/20 22:29 Temperature 98.2 F Pulse Rate 97 Respiratory 18 Rate Blood Pressure 123/70 O2 Sat by Pulse 95 Oximetry - Reevaluation(s) Reevaluation #1: 12/29/20 22:53 Medical record transferring paperwork is reviewed Reevaluation #2: 12/29/20 22:53 Patient complains of back pain severe which is chronic also states that he does have bedsores which are causing him pain - Consultations Consultation #1: spoke ann marie escobar for admission Medical Decision Making - Medical Decision Making 35 male who we will admit for MS exacerbation, will be evaluated by neurology as an inpatient basis for further evaluation management Disposition Clinical Impression: Lower extremity weakness, Exacerbation of multiple sclerosis Narrative: Sacral Decubitul Ulcer Present on Admission Disposition: ADMITTED IP TO THIS HOSP Condition: Fair Is patient prescribed a controlled substance at d/c from ED?: No Referrals: Bernadette Ridley MD [Primary Care Provider] - 1-2 days
[2020-12-29] MEDS ORDERED: ONDANSETRON 4 MG/2 ML VIAL IVP PRN (22:47)
[2020-12-29] MEDS ORDERED: NALOXONE 0.4 MG/ML 1 ML VIAL IV PRN (22:47)
[2020-12-29] MEDS: MORPHINE SULFATE 4 MG/ML SYRINGE IV PRN (23:50)
[2020-12-30 06:22] LABS: Glucose,Whole Blood 291 mg/dL (75-99)
[2020-12-30] MEDS: INSULIN ASPART (NovoLOG) 100 UNIT/ML VIAL SQ SCH ×6 (06:33→21:00)
[2020-12-30 08:21] LABS: Basophils # (A) 0.1 k/uL (0-0.2); Basophils % (A) 1 %; Eosinophils % (A) 1 %; HCT 40.4 % (39.0-53.0); HGB 12.9 gm/dL (13.0-17.5); Hypochromasia Slight; Lymphocytes # (A) 0.8 k/uL (1.0-4.8); Lymphocytes % (A) 16 %; MCH 29.8 pg (25.0-35.0); MCV 93.2 fL (80.0-100.0); Mean Platelet Volume 9.4; Monocytes # (A) 0.1 k/uL (0-1.0); Monocytes % (A) 2 %; Neutrophils # (A) 4.2 k/uL (1.3-7.7); Neutrophils % (A) 81 %; Platelet Count 186 k/uL (150-450); RBC 4.34 m/uL (4.30-5.90); RDW 14.4 % (11.5-15.5); WBC 5.2 k/uL (3.8-10.6)
[2020-12-30 08:43] LABS: Albumin 3.8 g/dL (3.5-5.0); Calcium 9.2 mg/dL (8.4-10.2); Potassium 4.8 mmol/L (3.5-5.1); Total Bilirubin 0.7 mg/dL (0.2-1.3); Total Protein 6.9 g/dL (6.3-8.2)
[2020-12-30] MEDS ORDERED: PANTOPRAZOLE 40 MG TABLET PO SCH (09:00)
[2020-12-30] MEDS: MORPHINE SULFATE 4 MG/ML SYRINGE IV PRN ×2 (09:17→21:00)
--- NOTE | 2020-12-30 09:48 | P.HPIM ---
History of Present Illness Patient is a 5-year-old male mainly came in because patient broke his wheelchair. Patient also complained that he may have increasing weakness in both legs. Patient does have history of multiple sclerosis secondary progressive with the week weakness and bilateral lower extremity is 3/5 strength unsure how much is chronic. Patient does also have a visual problems from his past optic neuritis. Mild weakness in bilateral upper extremities. Patient was started on high-dose steroids and admitted for MS exacerbation and neurology was consulted. Patient has a stage I sacral decubitus ulcer wound care is being consulted for that. Patient does smoke 1 pack of cigarettes per day as well as marijuana Review of Systems REVIEW OF SYSTEMS: CONSTITUTIONAL: No fever, no malaise, no fatigue. HEENT: No recent visual problems or hearing problems. Denied any sore throat. CARDIOVASCULAR: No chest pain, orthopnea, PND, no palpitations, no syncope. PULMONARY: No shortness of breath, no cough, no hemoptysis. GASTROINTESTINAL: No diarrhea, no nausea, no vomiting, no abdominal pain. NEUROLOGICAL: No headache. HEMATOLOGICAL: Denies any bleeding or petechiae. GENITOURINARY: Denies any burning micturition, frequency, or urgency. MUSCULOSKELETAL/RHEUMATOLOGICAL: Denies any joint pain, swelling, or any muscle pain. ENDOCRINE: Denies any polyuria or polydipsia. The rest of the 14-point review of systems is negative. 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 OPTIC NEURITIS, pt states he currently has a wound R scrotum. History of Any Multi-Drug Resistant Organisms: None Reported Additional Past Surgical History / Comment(s): Pilonidial cyst removal, lumbar puncture, colonoscopy, past R thigh ulcer debridement. Past Anesthesia/Blood Transfusion Reactions: No Reported Reaction Additional Past Anesthesia/Blood Transfusion Reaction / Comment(s): Pt has never had a blood transfusion. Past Psychological History: Bipolar, Depression Additional Psychological History / Comment(s): Rage disorder under control-no longer requires meds for this. Pt resides in his apartment alone. Patient has an electric wheelchair, is no longer ambulatory. Patient has a group home paraprofessional that comes to his house 5 days a week 6hours a day who does his grocery shopping and assists him with his ADLS. Smoking Status: Current every day smoker Past Alcohol Use History: None Reported Additional Past Alcohol Use History / Comment(s): started smoking 1994 smokes 1/2 to 1 ppd Past Drug Use History: Marijuana Additional Drug Use History / Comment(s): Pt states he smokes marijuana daily out of a pipe. - Past Family History Father Family Medical History: No Reported History, Myocardial Infarction ([place]) Additional Family Medical History / Comment(s): Father was an alcoholic and "drank himself to ." Mother Family Medical History: Blood Disorder, CVA/TIA, Diabetes Mellitus, Deep Vein Thrombosis (DVT), Myocardial Infarction ([place]), Vascular Disorder Additional Family Medical History / Comment(s): Several CVAs, several DVTs, PVT with stents in legs. Medications and Allergies Home Medications Medication Instructions Recorded Confirmed Type Fenofibrate [Lofibra] 160 mg PO DAILY 12/24/14 01/09/20 History Furosemide [Lasix] 20 mg PO DAILY 12/24/14 01/09/20 History Ibuprofen [Motrin] 800 mg PO TID PRN 12/24/14 01/09/20 History Meclizine [Antivert] 25 mg PO TID PRN 12/24/14 01/09/20 History Montelukast [Singulair] 10 mg PO HS 12/24/14 01/09/20 History Omeprazole [PriLOSEC] 20 mg PO AC-BID 12/24/14 01/09/20 History Pregabalin [Lyrica] 300 mg PO BID 12/24/14 01/09/20 History Simvastatin [Zocor] 20 mg PO HS 12/24/14 01/09/20 History Travoprost [Travatan Z 0.004%] 1 drop BOTH EYES HS 12/24/14 01/09/20 History tiZANidine [Zanaflex] 4 mg PO TID 12/24/14 01/09/20 History traMADol HCl [Ultram] 50 mg PO Q4HR PRN 12/24/14 01/09/20 History Ampyra 10mg 10 mg PO Q12H 10/04/17 01/09/20 History Cholecalciferol [Vitamin D3 (25 2,000 unit PO DAILY 10/04/17 01/09/20 History Mcg = 1000 Iu)] INSULIN ASPART (NovoLOG) [NovoLOG See Protocol SQ AC-TID 10/04/17 01/09/20 History (formulary)] Insulin Detemir (Levemir) [Levemir] 35 unit SQ HS 10/04/17 01/09/20 History Potassium Chloride [Klor-Con 20] 20 meq PO DAILY 10/04/17 01/09/20 History Teriflunomide [Aubagio] 14 mg PO DAILY 10/04/17 01/09/20 History metFORMIN HCL 1,000 mg PO BID 10/04/17 01/09/20 History Butalb/Asprin/Caff 50-325-40Mg 1 cap PO Q8HR PRN 09/19/18 01/09/20 History [Fiorinal 50-325-40 MG] Multivitamins, Thera [Multivitamin 1 each PO DAILY@1200 #30 tab 10/25/18 01/09/20 Rx (formulary)] Allergies Allergy/AdvReac Type Severity Reaction Status Date / Time amphetamine [From Adderall] Allergy Unknown Verified 12/29/20 22:36 dextroamphetamine Allergy Unknown Verified 12/29/20 22:36 [From Adderall] codeine AdvReac Nausea & Verified 12/29/20 22:36 Vomiting Physical Exam Vitals: Vital Signs Temp Pulse Pulse Resp BP BP Pulse Ox 12/30/20 08:00 97.3 F L 95 18 125/68 12/30/20 04:00 98.3 F 91 18 126/69 12/30/20 02:00 96 18 12/30/20 00:42 97.9 F 96 18 121/70 93 L 02/23/21 23:56 97 22 111/62 96 12/29/20 22:29 98.2 F 97 18 123/70 95 Intake and Output 12/29/20 12/30/20 12/30/20 22:59 06:59 14:59 Intake Total 140 Balance 140 Intake: Oral 140 Other: Voiding Method Diaper Diaper Incontinent Incontinent Weight 168.283 kg 169.5 kg PHYSICAL EXAMINATION: GENERAL: The patient is alert and oriented x3, not in any acute distress. Morbidly obese HEENT: Pupils are round and equally reacting to light. EOMI. No scleral icterus. No conjunctival pallor. Normocephalic, atraumatic. No pharyngeal erythema. No thyromegaly. CARDIOVASCULAR: S1 and S2 present. No murmurs, rubs, or gallops. PULMONARY: Chest is clear to auscultation, no wheezing or crackles. ABDOMEN: Soft, nontender, nondistended, normoactive bowel sounds. No palpable organomegaly. MUSCULOSKELETAL: No joint swelling or deformity. EXTREMITIES: No cyanosis, clubbing, or pedal edema. NEUROLOGICAL: 3/5 strength in bilateral lower extremities SKIN: Patient on decubitus ulcer Results CBC & Chem 7: 12/30/20 07:08 12/30/20 07:08 Labs: Abnormal Lab Results - Last 24 Hours (Table) 12/30/20 12/30/20 12/30/20 Range/Units 06:21 07:08 07:08 Hgb 12.9 L (13.0-17.5) gm/dL Lymphocytes # 0.8 L (1.0-4.8) k/uL Sodium 135 L (137-145) mmol/L BUN 22 H (9-20) mg/dL Glucose 329 H (74-99) mg/dL POC Glucose (mg/dL) 291 H (75-99) mg/dL Thrombosis Risk Factor Assmnt - Choose All That Apply Any of the Below Risk Factors Present?: Yes Each Factor Represents 1 point: Obesity (BMI >25), Swollen legs (current) Thrombosis Risk Factor Assessment Total Risk Factor Score: 2 Thrombosis Risk Factor Assessment Level: Low Risk Assessment and Plan Plan: Possibility of MS exacerbation: Patient will be continued on the high-dose steroids patient blood sugar is expected to go patient is already have her take will increase the dose of long-acting insulin will add pre-meal insulin along with sliding scale. We'll leave the decision of continuation of the steroids if needed to neurology. PT and OT, social service coordinator be consulted. Patient to lost his wheelchair and patient need a new wheelchair and a hospital bed. Patient lives by himself with help of a caregiver who visits him 5 days a week -Type 2 diabetes mellitus elevated blood sugars appears to be uncontrolled to st art with at home. Patient blood sugars are expected to go up may end up needing IV insulin for now we'll continue with the above-mentioned regimen -Mild acute renal failure: Most probably prerenal azotemia patient was started on IV fluids -Gastroesophageal reflux disease -Hypertension -Seizure disorder -Morbid obesity obstructive sleep apnea -DVT prophylaxis with Lovenox. GI prophylaxis with Protonix -For above-mentioned chronic medical problems patient will be resumed on appropriate heart medications once these medications are verified
[2020-12-30 11:22] VITALS: BMI 60.2
[2020-12-30 11:48] LABS: Glucose,Whole Blood 451 mg/dL (75-99)
--- NOTE | 2020-12-30 12:13 | P.CONS ---
History of Present Illness - Reason for Consult Consult date: 12/30/20 wound care - History of Present Illness This is a 35-year-old male known to the wound care center with a nonhealing ulcerations to bilateral groins. Patient was recently discharged from the wound care center with similar ulcerations that were healed. Patient has poor hygiene and off and is incontinent. During the exam no open ulcerations noted only excoriation throughout bilateral groins present. Patient states that the ulcerations are more towards the scrotum they were not visualized. Minimal drainage noted to bilateral groins. Patient past medical history significant for CVA, diabetes mellitus, hypertension, sleep apnea, MS he isn't everyday current smoker. Review Of Systems: Constitutional: No fever, no chills, no night sweats. No weight change. No weakness, fatigue or lethargy. No daytime sleepiness. Integumentary:reports wounds, no lesions. No rash or pruritus. No unusual bruising. No change in hair or nails. Physical exam: General Appearance: Alert, cooperative, no distress, appears stated age. Skin: See HPI all other Skin color, texture, tugor normal, no rashes or lesions. Neurologic: Alert oriented x3 Assessment/plan: 1. Nonhealing ulcerations of bilateral groins with excoriation Limited to skin breakdown. Apply absorptive silver to bilateral groins dry Triad to periwound. Change Monday. May apply bag balm to bilateral lower extremities due to dryness. 2. Diabetes a skin ulcer 3. Morbid obesity Thank you for the consultation any questions his contact the wound care center DNP note has been reviewed and discussed with Dr. Keith and the impression and plan of care has been directed as dictated. 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 OPTIC NEURITIS, pt states he currently has a wound R scrotum. History of Any Multi-Drug Resistant Organisms: None Reported Additional Past Surgical History / Comment(s): Pilonidial cyst removal, lumbar puncture, colonoscopy, past R thigh ulcer debridement. Past Anesthesia/Blood Transfusion Reactions: No Reported Reaction Additional Past Anesthesia/Blood Transfusion Reaction / Comm: Pt has never had a blood transfusion. Past Psychological History: Bipolar, Depression Additional Psychological History / Comment(s): Rage disorder under control-no longer requires meds for this. Pt resides in his apartment alone. Patient has an electric wheelchair, is no longer ambulatory. Patient has a home economics expert that comes to his house 5 days a week 6hours a day who does his grocery shopping and assists him with his ADLS. Smoking Status: Current every day smoker Past Alcohol Use History: None Reported Additional Past Alcohol Use History / Comment(s): started smoking 1993 smokes 1/2 to 1 ppd Past Drug Use History: Marijuana Additional Drug Use History / Comment(s): Pt states he smokes marijuana daily out of a pipe. - Past Family History Father Family Medical History: No Reported History, Myocardial Infarction ([place]) Additional Family Medical History / Comment(s): Father was an alcoholic and "drank himself to ." Mother Family Medical History: Blood Disorder, CVA/TIA, Diabetes Mellitus, Deep Vein Thrombosis (DVT), Myocardial Infarction ([place]), Vascular Disorder Additional Family Medical History / Comment(s): Several CVAs, several DVTs, PVT with stents in legs. Medications and Allergies Home Medications Medication Instructions Recorded Confirmed Type Fenofibrate [Lofibra] 160 mg PO DAILY 12/24/14 12/30/20 History Furosemide [Lasix] 20 mg PO DAILY 12/24/14 12/30/20 History Ibuprofen [Motrin] 800 mg PO TID PRN 12/24/14 12/30/20 History Meclizine [Antivert] 25 mg PO TID PRN 12/24/14 12/30/20 History Montelukast [Singulair] 10 mg PO HS 12/24/14 12/30/20 History Pregabalin [Lyrica] 300 mg PO BID 12/24/14 12/30/20 History Travoprost [Travatan Z 0.004%] 1 drop BOTH EYES HS 12/24/14 12/30/20 History tiZANidine [Zanaflex] 4 mg PO TID PRN 12/24/14 12/30/20 History traMADol HCl [Ultram] 50 mg PO Q4-6H PRN 12/24/14 12/30/20 History INSULIN ASPART (NovoLOG) [NovoLOG 60 unit SQ AC-TID 10/04/17 12/30/20 History (formulary)] Potassium Chloride [Klor-Con 20] 20 meq PO DAILY 10/04/17 12/30/20 History Teriflunomide [Aubagio] 14 mg PO DAILY 10/04/17 12/30/20 History Acthar 80 Units/Ml Injection Gel 80 units SQ DIRECTED 12/30/20 12/30/20 H istory Albuterol Nebulized [Ventolin 2.5 mg INHALATION RT-TID 12/30/20 12/30/20 History Nebulized] Albuterol Sulfate [Ventolin HFA] 2 puff INHALATION RT-QID PRN 12/30/20 12/30/20 History Cholecalciferol (Vitamin D3) 125 mcg PO DAILY 12/30/20 12/30/20 History [Vitamin D3 (5000 Iu)] Dalfampridine [Dalfampridine ER] 10 mg PO Q12H 12/30/20 12/30/20 History Diclofenac Sodium [Voltaren] 75 mg PO BID 12/30/20 12/30/20 History Fluticasone Nasal [place] [Flonase 1 - 2 spray EA NOSTRIL BID 12/30/20 12/30/20 History Nasal [place]] Hydrophilic Cream [Triad Cream] 1 applic TOPICAL TID PRN 12/30/20 12/30/20 History Insulin Detemir [Levemir Flextouch] 80 units SQ HS 12/30/20 12/30/20 History Ketoconazole 2% Cream [Nizoral 2%] 1 applic TOPICAL DAILY 12/30/20 12/30/20 History Loperamide [Imodium] 2 mg PO BID PRN 12/30/20 12/30/20 History Omeprazole 40 mg PO DAILY 12/30/20 12/30/20 History Oxybutynin Chloride [Oxybutynin 15 mg PO DAILY 12/30/20 12/30/20 History Chloride ER] QUEtiapine [SEROquel] 50 mg PO HS 12/30/20 12/30/20 History SILVER sulfADIAZINE Cream 1 applic TOPICAL DAILY PRN 12/30/20 12/30/20 History [Silvadene 1% Cream] Sertraline [Zoloft] 100 mg PO BID 12/30/20 12/30/20 History Simvastatin [Zocor] 40 mg PO HS 12/30/20 12/30/20 History Tamsulosin HCl [Flomax] 0.4 mg PO DAILY 12/30/20 12/30/20 History Tolterodine Tartrate [Detrol LA] 4 mg PO DAILY 12/30/20 12/30/20 History Topiramate [Topamax] 50 mg PO DAILY 12/30/20 12/30/20 History diazePAM [Valium] 5 mg PO BID PRN 12/30/20 12/30/20 History lisinopriL [Zestril] 2.5 mg PO DAILY 12/30/20 12/30/20 History metFORMIN HCL ER [Glucophage Xr] 1,000 mg PO BID 12/30/20 12/30/20 History ondansetron HCL [Zofran] 8 mg PO DAILY 12/30/20 12/30/20 History Allergies Allergy/AdvReac Type Severity Reaction Status Date / Time amphetamine [From Adderall] Allergy Unknown Verified 12/30/20 10:16 dextroamphetamine Allergy Unknown Verified 12/30/20 10:16 [From Adderall] codeine AdvReac Nausea & Verified 12/30/20 10:16 Vomiting Physical Exam Vitals: Vital Signs Temp Pulse Pulse Resp BP BP Pulse Ox 12/30/20 08:00 97.3 F L 95 18 125/68 12/30/20 04:00 98.3 F 91 18 126/69 12/30/20 02:00 96 18 12/30/20 00:42 97.9 F 96 18 121/70 93 L 12/29/20 23:56 97 22 111/62 96 12/29/20 22:29 98.2 F 97 18 123/70 95 Intake and Output 02/23/21 02/24/21 02/24/21 22:59 06:59 14:59 Intake Total 380 Balance 380 Intake: Oral 380 Other: Voiding Method Diaper Diaper Incontinent Incontinent Weight 168.283 kg 169.5 kg 169.5 kg Results CBC & Chem 7: 12/30/20 07:08 12/30/20 07:08 Labs: Abnormal Lab Results - Last 24 Hours (Table) 12/30/20 12/30/20 12/30/20 Range/Units 06:21 07:08 07:08 Hgb 12.9 L (13.0-17.5) gm/dL Lymphocytes # 0.8 L (1.0-4.8) k/uL Sodium 135 L (137-145) mmol/L BUN 22 H (9-20) mg/dL Glucose 329 H (74-99) mg/dL POC Glucose (mg/dL) 291 H (75-99) mg/dL 12/30/20 Range/Units 11:46 Hgb (13.0-17.5) gm/dL Lymphocytes # (1.0-4.8) k/uL Sodium (137-145) mmol/L BUN (9-20) mg/dL Glucose (74-99) mg/dL POC Glucose (mg/dL) 451 H (75-99) mg/dL Assessment and Plan (1) Non-healing ulcer of multiple sites, limited to breakdown of skin Current Visit: Yes Status: Acute Code(s): L98.491 - NON-PRS CHRONIC ULCER SKIN/ SITES LIMITED TO BRKDWN SKIN SNOMED Code(s): 91539975 (2) Diabetes with skin ulcer Current Visit: Yes Status: Acute Code(s): E11.622 - TYPE 2 DIABETES MELLITUS WITH OTHER SKIN ULCER; L98.499 - NON-PRESSURE CHRONIC ULCER OF SKIN OF SITES W UNSP SEVERITY SNOMED Code(s): 78974112 (3) Morbid obesity Current Visit: Yes Status: Acute Code(s): E66.01 - MORBID (SEVERE) OBESITY DUE TO EXCESS CALORIES SNOMED Code(s): 713941189
[2020-12-30] MEDS ORDERED: traMADol 50 MG TAB PO PRN (13:00)
[2020-12-30] MEDS ORDERED: HYDROPHILIC CREAM 180 GM TUBE TOPICAL PRN (13:00)
[2020-12-30] MEDS ORDERED: IBUPROFEN 800 MG TAB PO PRN ×2 (13:00→13:41)
[2020-12-30] MEDS ORDERED: ALBUTEROL NEBULIZED 2.5 MG/3 ML INHALATION PRN (13:00)
[2020-12-30] MEDS ORDERED: tiZANidine 4 MG TAB PO PRN (13:00)
[2020-12-30] MEDS ORDERED: OXYBUTYNIN 10 MG TAB.ER.24 PO SCH (13:15)
[2020-12-30] MEDS ORDERED: LOPERAMIDE 2 MG CAP PO PRN (13:32)
[2020-12-30] MEDS ORDERED: MECLIZINE 25 MG TAB PO PRN (13:32)
[2020-12-30] MEDS ORDERED: ONDANSETRON 4 MG TAB PO PRN (13:32)
[2020-12-30] MEDS: FENOFIBRATE 160 MG TAB PO SCH (14:11)
[2020-12-30] MEDS: NICOTINE 21MG/24HR PATCH TRANSDERM SCH (14:11)
[2020-12-30] MEDS: TAMSULOSIN 0.4 MG CAP.ER.24H PO SCH (14:11)
[2020-12-30] MEDS: CHOLECALCIFEROL 25 MCG (1000 IU) TABLET PO SCH (14:11)
[2020-12-30] MEDS: SERTRALINE 100 MG TAB PO SCH ×2 (14:11→20:58)
[2020-12-30] MEDS: TOPIRAMATE 25 MG TAB PO SCH (14:11)
[2020-12-30] MEDS: PREGABALIN 100 MG CAP PO SCH ×2 (14:12→20:59)
[2020-12-30] MEDS: PANTOPRAZOLE 40 MG TABLET PO SCH (14:12)
[2020-12-30] MEDS: FLUTICASONE 50MCG/SPRAY NASAL 16GM EA NOSTRIL SCH ×2 (14:13→20:40)
[2020-12-30] MEDS: DALFAMPRIDINE 10 MG PO SCH (14:13)
[2020-12-30] MEDS: ENOXAPARIN 40 MG/0.4 ML SYRINGE SQ SCH (14:14)
[2020-12-30] MEDS: CLOTRIMAZOLE 1% CREAM 15 GM TUBE TOPICAL SCH (14:14)
[2020-12-30] MEDS: PETROLAT,WHITE/LAN/8-HYDROXYQU 227 GM OINT TOPICAL SCH (14:15)
[2020-12-30] MEDS: ALBUTEROL NEBULIZED 2.5 MG/3 ML INHALATION SCH ×2 (15:30→20:43)
[2020-12-30 16:26] LABS: Glucose,Whole Blood 398 mg/dL (75-99)
--- NOTE | 2020-12-30 17:05 | P.CNNES ---
History of Present Illness Consult date: 12/30/20 Requesting physician: Zay Evans Reason for Consult: Multiple sclerosis History of Present Illness: Patient is a 35-year-old male with history of multiple sclerosis, diabetes, hypertension, seizure disorder, obstructive sleep apnea, migraine headaches came to the hospital yesterday at 11:26 PM by ambulance for weakness. Patient is a transferred from [facility] for possible MS exacerbation. Patient states that he was diagnosed with relapsing remitting multiple sclerosis about 3-5 years ago. He was initially placed on Tecfidera, but has been on Aubagio since 2017, as per records from previous admissions. Patient states that he has custom-made wheelchair but it broke 3 weeks ago. He was trying to get it fixed. However he has been having problems with ambulation, cannot walk more than 5 feet without tendency to fall. He felt that he was having MS exacerbation. He follows up with Dr. Coffey office. Patient states that he recently tried treatment with Acthar Gel injections 5 day course for MS exacerbation, which he believes is completed on 12/24/2020. He felt that he was doing much better, but the improvement stayed only for 2 days then his symptoms again started feeling worse. Patient states that he has been falling every day since last 1 week, and he has to call EMS to pick him up. Patient has been receiving Solu-Medrol 250 mg every 6 hours. Patient is very upset, as his blood sugars are going up from steroids, for which she is receiving insulin, but he is not happy. Patient states that previously when he's tried a pulse dose steroids, the benefit only lasts for 3-4 weeks, maximum 1-1/2 months. He wants to go home, but is willing to stay for another 24 hours. Vital signs on arrival blood pressure 123/70, pulse rate and 70. 98.2. Patient's blood test shows normal CBC with differential, lymphocytes is 0.8. Sodium 135 potassium 4.8, renal functions with BUN 22 creatinine 1.20. Blood glucose 3 today diet, hepatic panel normal. Joiner virus PCR negative. Patient's last hemoglobin A1c 6.7 on 06/25/2020. Patient has history of vitamin B6 deficiency with level of 2 on 01/10/2020. B12 was also borderline 262. Vitamin D was normal 50 on 06/25/2020. Patient has spinal foot examination performed previously on 12/15/2014, in which 4 or more oligoclonal bands were positive. IgG synthesis rate was borderline low 2.41 (0-3.0). IgG index was not elevated. Patient's last JCV antibody titer was 0.26 which is indeterminate range (0.2-0.4) Patient currently takes Aubagio 14 mg daily for multiple sclerosis. Telemetry monitoring showing sinus rhythm with sinus tachycardia. Review of Systems As above in detail. Patient has more problems, denies any problems speech or swallow. Patient states he has history of optic neuritis. Patient denies any chest pain. He does complain of being hot, sweaty and some shortness of breath. Complains of swelling of the feet. Weight gain. Denies any abdominal pain, nausea vomiting diarrhea. Patient does have gait difficulty, numbness, muscle weakness, leg pain. All other review of systems noncontributory. 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 OPTIC NEURITIS, pt states he currently has a wound R scrotum. History of Any Multi-Drug Resistant Organisms: None Reported Additional Past Surgical History / Comment(s): Pilonidial cyst removal, lumbar puncture, colonoscopy, past R thigh ulcer debridement. Past Anesthesia/Blood Transfusion Reactions: No Reported Reaction Additional Past Anesthesia/Blood Transfusion Reaction / Comment(s): Pt has never had a blood transfusion. Past Psychological History: Bipolar, Depression Additional Psychological History / Comment(s): Rage disorder under control-no longer requires meds for this. Pt resides in his apartment alone. Patient has an electric wheelchair, is no longer ambulatory. Patient has a group home worker that comes to his house 5 days a week 6hours a day who does his grocery shopping and assists him with his ADLS. Smoking Status: Current every day smoker Past Alcohol Use History: None Reported Additional Past Alcohol Use History / Comment(s): started smoking 1994 smokes 1/2 to 1 ppd Past Drug Use History: Marijuana Additional Drug Use History / Comment(s): Pt states he smokes marijuana daily out of a pipe. - Past Family History Father Family Medical History: No Reported History, Myocardial Infarction (RI) Additional Family Medical History / Comment(s): Father was an alcoholic and "drank himself to ." Mother Family Medical History: Blood Disorder, CVA/TIA, Diabetes Mellitus, Deep Vein Thrombosis (DVT), Myocardial Infarction (RI), Vascular Disorder Additional Family Medical History / Comment(s): Several CVAs, several DVTs, PVT with stents in legs. Medications and Allergies Home Medications Medication Instructions Recorded Confirmed Type Fenofibrate [Lofibra] 160 mg PO DAILY 12/24/14 12/30/20 History Furosemide [Lasix] 20 mg PO DAILY 12/24/14 12/30/20 History Ibuprofen [Motrin] 800 mg PO TID PRN 12/24/14 12/30/20 History Meclizine [Antivert] 25 mg PO TID PRN 12/24/14 12/30/20 History Montelukast [Singulair] 10 mg PO HS 12/24/14 12/30/20 History Pregabalin [Lyrica] 300 mg PO BID 12/24/14 12/30/20 History Travoprost [Travatan Z 0.004%] 1 drop BOTH EYES HS 12/24/14 12/30/20 History tiZANidine [Zanaflex] 4 mg PO TID PRN 12/24/14 12/30/20 History traMADol HCl [Ultram] 50 mg PO Q4-6H PRN 12/24/14 12/30/20 History INSULIN ASPART (NovoLOG) [NovoLOG 60 unit SQ AC-TID 10/04/17 12/30/20 History (formulary)] Potassium Chloride [Klor-Con 20] 20 meq PO DAILY 10/04/17 12/30/20 History Teriflunomide [Aubagio] 14 mg PO DAILY 10/04/17 12/30/20 History Acthar 80 Units/Ml Injection Gel 80 units SQ DIRECTED 12/30/20 12/30/20 History Albuterol Nebulized [Ventolin 2.5 mg INHALATION RT-TID 12/30/20 12/30/20 History Nebulized] Albuterol Sulfate [Ventolin HFA] 2 puff INHALATION RT-QID PRN 12/30/20 12/30/20 History Cholecalciferol (Vitamin D3) 125 mcg PO DAILY 12/30/20 12/30/20 History [Vitamin D3 (5000 Iu)] Dalfampridine [Dalfampridine ER] 10 mg PO Q12H 12/30/20 12/30/20 History Diclofenac Sodium [Voltaren] 75 mg PO BID 12/30/20 12/30/20 History Fluticasone Nasal [place] [Flonase 1 - 2 spray EA NOSTRIL BID 12/30/20 12/30/20 History Nasal [place]] Hydrophilic Cream [Triad Cream] 1 applic TOPICAL TID PRN 12/30/20 12/30/20 History Insulin Detemir [Levemir Flextouch] 80 units SQ HS 12/30/20 12/30/20 History Ketoconazole 2% Cream [Nizoral 2%] 1 applic TOPICAL DAILY 12/30/20 12/30/20 History Loperamide [Imodium] 2 mg PO BID PRN 12/30/20 12/30/20 History Omeprazole 40 mg PO DAILY 12/30/20 12/30/20 History Oxybutynin Chloride [Oxybutynin 15 mg PO DAILY 12/30/20 12/30/20 History Chloride ER] QUEtiapine [SEROquel] 50 mg PO HS 12/30/20 12/30/20 History SILVER sulfADIAZINE Cream 1 applic TOPICAL DAILY PRN 12/30/20 12/30/20 History [Silvadene 1% Cream] Sertraline [Zoloft] 100 mg PO BID 12/30/20 12/30/20 History Simvastatin [Zocor] 40 mg PO HS 12/30/20 12/30/20 History Tamsulosin HCl [Flomax] 0.4 mg PO DAILY 12/30/20 12/30/20 History Tolterodine Tartrate [Detrol LA] 4 mg PO DAILY 12/30/20 12/30/20 History Topiramate [Topamax] 50 mg PO DAILY 12/30/20 12/30/20 History diazePAM [Valium] 5 mg PO BID PRN 12/30/20 12/30/20 History lisinopriL [Zestril] 2.5 mg PO DAILY 12/30/20 12/30/20 History metFORMIN HCL ER [Glucophage Xr] 1,000 mg PO BID 12/30/20 12/30/20 History ondansetron HCL [Zofran] 8 mg PO DAILY 12/30/20 12/30/20 History Allergies Allergy/AdvReac Type Severity Reaction Status Date / Time amphetamine [From Adderall] Allergy Unknown Verified 12/30/20 10:16 dextroamphetamine Allergy Unknown Verified 12/30/20 10:16 [From Adderall] codeine AdvReac Nausea & Verified 12/30/20 10:16 Vomiting Physical Examination - Vital Signs Vital Signs: Vital Signs Temp Pulse Pulse Resp BP BP Pulse Ox 12/30/20 08:00 97.3 F L 95 18 125/68 12/30/20 04:00 98.3 F 91 18 126/69 12/30/20 02:00 96 18 12/30/20 00:42 97.9 F 96 18 121/70 93 L 12/29/20 23:56 97 22 111/62 96 12/29/20 22:29 98.2 F 97 18 123/70 95 Intake and Output 12/29/20 12/30/20 12/30/20 22:59 06:59 14:59 Intake Total 140 Balance 140 Intake: Oral 140 Other: Voiding Method Diaper Diaper Incontinent Incontinent Weight 168.283 kg 169.5 kg On examination patient's mental status, speech and language functions are normal. Attention, concentration and fund of knowledge is adequate. On cranial examination pupils are round and reacting to light, visual rizo are full on confrontation, extraocular muscles are intact with no nystagmus. Face is symmetric, tongue protrudes to the midline. Palatal elevation and sensation normal. Hearing and shoulder shrug normal, facial sensation normal. On muscle strength testing (right/left) deltoid 5-/4+, biceps 5/5-, triceps 5/4+, mailing manager 5-/4-, in the lower limbs, hip flexion is 4 to 4-/1-2, ankle dorsiflexion 5-/4. Patient has absent reflexes, plantar is downgoing on the right, up on the left. No obvious ataxia for [id number] testing. Tone and bulk of muscles normal. Gait cannot be checked because he has no walker. On general examination, there is no carotid bruit or murmur, patient has some peripheral edema. S1 and S2 audible. Abdomen is soft and nontender. Results - Laboratory Findings CBC and BMP: 12/30/20 07:08 12/30/20 07:08 Abnormal Lab Findings: Abnormal Labs 12/30/20 12/30/20 12/30/20 06:21 07:08 07:08 Hgb 12.9 L Lymphocytes # 0.8 L Sodium 135 L BUN 22 H Glucose 329 H POC Glucose (mg/dL) 291 H Assessment and Plan Assessment: * Relapsing remitting multiple sclerosis. Possible MS exacerbation. * History of B12 deficiency * History of B6 deficiency Plan: * Patient will continue Solu-Medrol 250 mg every 6 hours until tomorrow. Thereafter he wants to be discharged, and follow-up with his neurologist. He may undergo more treatment as outpatient, if recommended by his neurologist. * Patient has been on Aubagio for number of years and has been having relapses. He could be a candidate for Tysabri or Ocrevus. Patient will discuss with his primary neurologist. * We will recheck B12, folate, B6 and vitamin D levels. Patient will be started on replacement after blood is drawn. * We will follow while in the hospital.
[2020-12-30] MEDS: TERIFLUNOMIDE 14 MG PO SCH (17:10)
[2020-12-30] MEDS: OXYBUTYNIN 15 MG TAB.ER.24 PO SCH (17:17)
[2020-12-30] MEDS: ETODOLAC 400 MG TAB PO SCH ×2 (17:18→20:27)
[2020-12-30 20:02] LABS: Glucose,Whole Blood 319 mg/dL (75-99)
[2020-12-30] MEDS ORDERED: ATORVASTATIN 20 MG TAB PO SCH (21:00)
[2020-12-30] MEDS ORDERED: LATANOPROST 0.005% OPHTH DROPS 2.5 ML BTL BOTH EYES SCH (21:00)
[2020-12-30] MEDS ORDERED: INSULIN DETEMIR (LEVEMIR) 100 UNIT/ML SYR SQ SCH (21:00)
[2020-12-30] MEDS ORDERED: MONTELUKAST 10 MG TAB PO SCH (21:00)
[2020-12-30] MEDS ORDERED: QUEtiapine 50 MG TAB PO SCH (21:00)
[2020-12-30 21:07] LABS: Hemoglobin A1C 6.6 % (4.0-6.0)
[2020-12-30] MEDS: SODIUM CHLORIDE 0.9% 1,000 ML IV SCH ×2 (21:48→21:52)
[2020-12-31] MEDS: DALFAMPRIDINE 10 MG PO SCH ×2 (01:10→15:41)
[2020-12-31] MEDS: MORPHINE SULFATE 4 MG/ML SYRINGE IV PRN ×3 (01:30→11:14)
[2020-12-31 03:32] VITALS: TEMP 97.6
[2020-12-31] MEDS: SODIUM CHLORIDE 0.9% 1,000 ML IV SCH (05:13)
[2020-12-31 06:52] LABS: Glucose,Whole Blood 454 mg/dL (75-99)
[2020-12-31] MEDS: PETROLAT,WHITE/LAN/8-HYDROXYQU 227 GM OINT TOPICAL SCH (07:22)
[2020-12-31] MEDS: NICOTINE 21MG/24HR PATCH TRANSDERM SCH (07:23)
[2020-12-31] MEDS: CHOLECALCIFEROL 25 MCG (1000 IU) TABLET PO SCH (07:23)
[2020-12-31] MEDS: ENOXAPARIN 40 MG/0.4 ML SYRINGE SQ SCH (07:23)
[2020-12-31] MEDS: PREGABALIN 100 MG CAP PO SCH (07:23)
[2020-12-31] MEDS: SERTRALINE 100 MG TAB PO SCH (07:24)
[2020-12-31] MEDS: TAMSULOSIN 0.4 MG CAP.ER.24H PO SCH (07:24)
[2020-12-31] MEDS: FENOFIBRATE 160 MG TAB PO SCH (07:24)
[2020-12-31] MEDS: OXYBUTYNIN 15 MG TAB.ER.24 PO SCH (07:24)
[2020-12-31] MEDS: PANTOPRAZOLE 40 MG TABLET PO SCH (07:25)
[2020-12-31] MEDS: INSULIN ASPART (NovoLOG) 100 UNIT/ML VIAL SQ SCH ×4 (07:32→11:50)
[2020-12-31] MEDS: ETODOLAC 400 MG TAB PO SCH (07:33)
[2020-12-31] MEDS: FLUTICASONE 50MCG/SPRAY NASAL 16GM EA NOSTRIL SCH (07:34)
[2020-12-31 07:47] VITALS: BP 123/47; RESP 20
[2020-12-31] MEDS: ALBUTEROL NEBULIZED 2.5 MG/3 ML INHALATION SCH ×2 (08:50→11:21)
[2020-12-31] MEDS: TOPIRAMATE 25 MG TAB PO SCH (09:11)
[2020-12-31 11:33] VITALS: PULSE 94
[2020-12-31 11:42] LABS: Folate, Serum 6.1 ng/mL
[2020-12-31] MEDS: TERIFLUNOMIDE 14 MG PO SCH (11:42)
[2020-12-31 11:43] LABS: Glucose,Whole Blood 392 mg/dL (75-99)
[2020-12-31] MEDS: CLOTRIMAZOLE 1% CREAM 15 GM TUBE TOPICAL SCH (15:40)
--- NOTE | 2021-01-01 14:55 | P.DS ---
Providers Date of admission: 12/29/20 22:47 Expected date of discharge: 12/31/20 Attending physician: Jos Maradiaga Consults: 12/29/20 22:48 Consult Physician Routine Consulting Provider: Dany Oquendo Consult Reason/Comments: MS Do you want consulting provider notified?: Yes Primary care physician: Bernadette Ridley Hospital Course: Final diagnosis -Possibility of MS exacerbation -Type 2 diabetes mellitus uncontrolled with elevated blood sugars appears to be uncontrolled to start with at home -Mild acute renal failure: Most probably prerenal azotemia -Gastroesophageal reflux disease -Hypertension -Seizure disorder -Morbid obesity obstructive sleep apnea -DVT prophylaxis -GI prophylaxis -Full code Discharge disposition Patient is being discharged in a stable condition with guarded prognosis to home. Patient will follow-up with Dr. Ridley in the outpatient setting upon discharge. Patient will continue with home care in the outpatient setting. Patient is to follow-up with his neurologist outpatient as discussed. Total time taken is greater than 35 minutes. Hospital course Patient is a 5-year-old male mainly came in because patient broke his Xactium r. Patient also complained that he may have increasing weakness in both legs. Patient does have history of multiple sclerosis secondary progressive with the week weakness and bilateral lower extremity is 3/5 strength unsure how much is chronic. Patient does also have a visual problems from his past optic neuritis. Mild weakness in bilateral upper extremities. Patient was started on high-dose steroids and admitted for MS exacerbation and neurology was consulted. Patient has a stage I sacral decubitus ulcer wound care is being consulted for that. Patient does smoke 1 pack of cigarettes per day as well as marijuana 12/31/2020 Patient is seen in follow-up this morning is feeling much better and his continued on high-dose IV steroids per neurology recommendations and will be receiving last dose today. Patient is requesting to go home today and states he will follow-up outpatient with his neurologist. She we'll continue with home care in the outpatient setting. Patient instructed and educated to refrain from tobacco use. Currently no reports of chest pain, shortness of breath, or palpitations. Patient is afebrile. No reports of nausea or vomiting and patient is tolerating diet. Patient will be discharged home today. On exam vital signs are stable. Cardio S1, S2 are muffled. Respiratory system shows diminished breath sounds at the bases with no wheezing or rhonchi noted. Abdomen is soft and obese, and nontender. Nervous system shows no focal deficits. Please refer to medication reconciliation sheet for a list of medications. Patient Condition at Discharge: Fair Plan - Discharge Summary Discharge Rx Participant: No New Discharge Prescriptions: New Petrolat,White/Meño/8-Hydroxyqu [Bag Leon] 1 gm TOPICAL DAILY oint Sennosides [Senokot] 8.6 mg PO BID PRN #20 tablet PRN Reason: Constipation Continue Travoprost [Travatan Z 0.004%] 1 drop BOTH EYES HS tiZANidine [Zanaflex] 4 mg PO TID PRN PRN Reason: Muscle Spasm Ibuprofen [Motrin] 800 mg PO TID PRN PRN Reason: Pain Pregabalin [Lyrica] 300 mg PO BID Meclizine [Antivert] 25 mg PO TID PRN PRN Reason: Nausea Montelukast [Singulair] 10 mg PO HS Fenofibrate [Lofibra] 160 mg PO DAILY INSULIN ASPART (NovoLOG) [NovoLOG (formulary)] 60 unit SQ AC-TID Teriflunomide [Aubagio] 14 mg PO DAILY Hydrophilic Cream [Triad Cream] 1 applic TOPICAL TID PRN PRN Reason: Skin Irritation Albuterol Sulfate [Ventolin HFA] 2 puff INHALATION RT-QID PRN PRN Reason: Shortness Of Breath Topiramate [Topamax] 50 mg PO DAILY Tolterodine Tartrate [Detrol LA] 4 mg PO DAILY Tamsulosin HCl [Flomax] 0.4 mg PO DAILY Simvastatin [Zocor] 40 mg PO HS Sertraline [Zoloft] 100 mg PO BID SILVER sulfADIAZINE Cream [Silvadene 1% Cream] 1 applic TOPICAL DAILY PRN PRN Reason: BURN QUEtiapine [SEROquel] 50 mg PO HS ondansetron HCL [Zofran] 8 mg PO DAILY Oxybutynin Chloride [Oxybutynin Chloride ER] 15 mg PO DAILY metFORMIN HCL ER [Glucophage Xr] 1,000 mg PO BID Omeprazole 40 mg PO DAILY Loperamide [Imodium] 2 mg PO BID PRN PRN Reason: Diarrhea Ketoconazole 2% Cream [Nizoral 2%] 1 applic TOPICAL DAILY Insulin Detemir [Levemir Flextouch] 80 units SQ HS Fluticasone Nasal [place] [Flonase Nasal [place]] 1 - 2 spray EA NOSTRIL BID diazePAM [Valium] 5 mg PO BID PRN PRN Reason: Anxiety Diclofenac Sodium [Voltaren] 75 mg PO BID Dalfampridine [Dalfampridine ER] 10 mg PO Q12H Cholecalciferol (Vitamin D3) [Vitamin D3 (5000 Iu)] 125 mcg PO DAILY Albuterol Nebulized [Ventolin Nebulized] 2.5 mg INHALATION RT-TID Acthar 80 Units/Ml Injection Gel 80 units SQ DIRECTED Changed traMADol HCl [Ultram] 50 mg PO Q6H PRN #12 tab PRN Reason: Pain Discontinued Furosemide [Lasix] 20 mg PO DAILY Potassium Chloride [Klor-Con 20] 20 meq PO DAILY lisinopriL [Zestril] 2.5 mg PO DAILY Discharge Medication List Fenofibrate [Lofibra] 160 mg PO DAILY 12/24/14 [History] Ibuprofen [Motrin] 800 mg PO TID PRN 12/24/14 [History] Meclizine [Antivert] 25 mg PO TID PRN 12/24/14 [History] Montelukast [Singulair] 10 mg PO HS 12/24/14 [History] Pregabalin [Lyrica] 300 mg PO BID 12/24/14 [History] Travoprost [Travatan Z 0.004%] 1 drop BOTH EYES HS 12/24/14 [History] tiZANidine [Zanaflex] 4 mg PO TID PRN 12/24/14 [History] INSULIN ASPART (NovoLOG) [NovoLOG (formulary)] 60 unit SQ AC-TID 10/04/17 [History] Teriflunomide [Aubagio] 14 mg PO DAILY 10/04/17 [History] Acthar 80 Units/Ml Injection Gel 80 units SQ DIRECTED 12/30/20 [History] Albuterol Nebulized [Ventolin Nebulized] 2.5 mg INHALATION RT-TID 12/30/20 [History] Albuterol Sulfate [Ventolin HFA] 2 puff INHALATION RT-QID PRN 12/30/20 [History] Cholecalciferol (Vitamin D3) [Vitamin D3 (5000 Iu)] 125 mcg PO DAILY 12/30/20 [History] Dalfampridine [Dalfampridine ER] 10 mg PO Q12H 12/30/20 [History] Diclofenac Sodium [Voltaren] 75 mg PO BID 12/30/20 [History] Fluticasone Nasal [place] [Flonase Nasal [place]] 1 - 2 spray EA NOSTRIL BID 12/30/20 [History] Hydrophilic Cream [Triad Cream] 1 applic TOPICAL TID PRN 12/30/20 [History] Insulin Detemir [Levemir Flextouch] 80 units SQ HS 12/30/20 [History] Ketoconazole 2% Cream [Nizoral 2%] 1 applic TOPICAL DAILY 12/30/20 [History] Loperamide [Imodium] 2 mg PO BID PRN 12/30/20 [History] Omeprazole 40 mg PO DAILY 12/30/20 [History] Oxybutynin Chloride [Oxybutynin Chloride ER] 15 mg PO DAILY 12/30/20 [History] QUEtiapine [SEROquel] 50 mg PO HS 12/30/20 [History] SILVER sulfADIAZINE Cream [Silvadene 1% Cream] 1 applic TOPICAL DAILY PRN 12/30/20 [History] Sertraline [Zoloft] 100 mg PO BID 12/30/20 [History] Simvastatin [Zocor] 40 mg PO HS 12/30/20 [History] Tamsulosin HCl [Flomax] 0.4 mg PO DAILY 12/30/20 [History] Tolterodine Tartrate [Detrol LA] 4 mg PO DAILY 12/30/20 [History] Topiramate [Topamax] 50 mg PO DAILY 12/30/20 [History] diazePAM [Valium] 5 mg PO BID PRN 12/30/20 [History] metFORMIN HCL ER [Glucophage Xr] 1,000 mg PO BID 12/30/20 [History] ondansetron HCL [Zofran] 8 mg PO DAILY 12/30/20 [History] Petrolat,White/Meño/8-Hydroxyqu [Bag Leon] 1 gm TOPICAL DAILY oint 12/31/20 [Rx] Sennosides [Senokot] 8.6 mg PO BID PRN #20 tablet 12/31/20 [Rx] traMADol HCl [Ultram] 50 mg PO Q6H PRN #12 tab 12/31/20 [Rx] Follow up Appointment(s)/Referral(s): [facility] [NON-STAFF] - As Needed ([facility] will follow along with [facility].) Bernadette Ridley MD [Primary Care Provider] - 01/05/21 8:00 am Ambulatory/Diagnostic Orders: Basic Metabolic Panel [LAB.AMB] Time Frame: 3 Days, Location: None Selected Patient Instructions/Handouts: Multiple Sclerosis (GEN) Activity/Diet/Wound Care/Special Instructions: Activity Limited until follow-up Follow-up with primary care provider upon discharge follow up with neurology outpatient in one week Continue to monitor blood sugars closely before meals and at bedtime and treat accordingly Hold Lasix and blood pressure medication for 2 days along with metformin with repeat labs in 2-3 days continue heart healthy diabetic diet Bilateral Groins - Wound Care Instructions per [facility] (Wound Center): - Cleanse and dry wounds with normal saline - Apply absorptive silver dry - Triad Cream to the surrounding areas - Change dressings Mondays, Wednesdays and Fridays Discharge Disposition: HOME WITH HOME HEALTH SERVICES
== END 2020-12-31 17:15 | disposition home health service (06) | DRG 59 ==
LOC: EC 22:26 → 3SCARD 22:47 → 4SSUR 12-30 21:11
PROVIDERS: ADMIT Hospitalist; ATTEND Hospitalist
DX: G35 Multiple sclerosis (principal); Z68.44 Body mass index [BMI] 60.0-69.9, adult; H46.9 Unspecified optic neuritis; N17.9 Acute kidney failure, unspecified; E11.622 Type 2 diabetes mellitus with other skin ulcer; E66.01 Morbid (severe) obesity due to excess calories; F17.210 Nicotine dependence, cigarettes, uncomplicated; G40.909 Epilepsy, unspecified, not intractable, without status epilepticus; G47.33 Obstructive sleep apnea (adult) (pediatric); Z99.89 Dependence on other enabling machines and devices; I10 Essential (primary) hypertension; K21.9 Gastro-esophageal reflux disease without esophagitis; Z20.822 Contact with and (suspected) exposure to COVID-19; L89.151 Pressure ulcer of sacral region, stage 1; L98.499 Non-pressure chronic ulcer of skin of other sites with unspecified severity; R32 Unspecified urinary incontinence; R15.9 Full incontinence of feces; L98.491 Non-pressure chronic ulcer of skin of other sites limited to breakdown of skin; E11.65 Type 2 diabetes mellitus with hyperglycemia; Z79.4 Long term (current) use of insulin; E53.8 Deficiency of other specified B group vitamins; E53.1 Pyridoxine deficiency; Z95.828 Presence of other vascular implants and grafts; G43.909 Migraine, unspecified, not intractable, without status migrainosus; H40.9 Unspecified glaucoma; Z81.1 Family history of alcohol abuse and dependence; Z82.3 Family history of stroke; Z83.3 Family history of diabetes mellitus; Z83.2 Family history of diseases of the blood and blood-forming organs and certain disorders involving the immune mechanism; Z79.899 Other long term (current) drug therapy; Z82.49 Family history of ischemic heart disease and other diseases of the circulatory system; Z86.73 Personal history of transient ischemic attack (TIA), and cerebral infarction without residual deficits; Z88.5 Allergy status to narcotic agent; Z88.8 Allergy status to other drugs, medicaments and biological substances; Z60.2 Problems related to living alone; F31.9 Bipolar disorder, unspecified; S31.30XA Unspecified open wound of scrotum and testes, initial encounter
CPT/HCPCS: 80053; 82306; 82607; 82746; 83036; 83921; 84207; 85025; 87635; 94640; 96374; 96375; 99285

== ENCOUNTER → 2023-03-10 | Outpatient (CLI) | payer MEDICARE, OTHER ==
[2023-03-11 01:59] LABS: African American GFR (CKD) 73.3 (60.0-200.0); Albumin 4.2 g/dL (3.8-4.9); Albumin/Globulin Ratio 1.56 (1.60-3.17); Anion Gap 10.7 mmol/L (10.00-18.00); BUN/Creat Ratio 15.21 Ratio (12.00-20.00); Blood Urea Nitrogen 21.3 mg/dL (9.0-27.0); Calcium 9.5 mg/dL (8.7-10.3); Carbon Dioxide 26.3 mmol/L (20.0-27.5); Globulin 2.7 g/dL (1.6-3.3); HDL Cholesterol 22.8 mg/dL (40.00-60.00); Non-African American GFR(CKD) 63.3 (60.0-200.0); Potassium 5.3 mmol/L (3.5-5.5); Total Bilirubin 0.2 mg/dL (0.30-1.20); Total Protein 6.9 g/dL (6.2-8.2)
[2023-03-11 02:10] LABS: Chol/HDL Ratio 9.65 Ratio
== END | disposition home or self-care (01) ==
LOC: LABWHC1 14:06
PROVIDERS: ATTEND Internal Medicine Endocrinology, Diabetes & Metabolism
DX: E11.65 Type 2 diabetes mellitus with hyperglycemia (principal)
CPT/HCPCS: 36415; 80053; 80061; 83036; 83721; 84443

== ENCOUNTER → 2023-10-05 | Outpatient (CLI) | payer MEDICARE, OTHER | END | disposition home or self-care (01) | LOC: LABWHC1 15:52 | PROVIDERS: ATTEND Family Medicine | DX: E11.8 Type 2 diabetes mellitus with unspecified complications (principal) | CPT/HCPCS: 36415; 84443 ==